=== PATIENT | male | born 1945 | race Caucasian/White ===

== ENCOUNTER 2017-11-05 20:40 | Inpatient (IN) ==
[2017-11-05] MEDS ORDERED: *HR* LORazepam 2 MG/ML VIAL IVP ONE (20:43)
[2017-11-05] MEDS ORDERED: 0.9 % Sodium Chloride 1,000 ML IVC ONE (20:43)
[2017-11-05] MEDS ORDERED: Pantoprazole 80 MG in 0.9 % Sodium Chloride 50 ML IVPB ONE (20:43)
--- NOTE | 2017-11-05 20:59 | Emergency Department Note ---
Disposition Clinical Impression: Colitis, Elevated troponin GI bleed Qualifiers: GI bleed type/associated pathology: unspecified gastrointestinal hemorrhage type Qualified Code(s): K92.2 - Gastrointestinal hemorrhage, unspecified Anemia Qualifiers: Anemia type: unspecified type Qualified Code(s): D64.9 - Anemia, unspecified Disposition: Admitted As Inpatient Condition: Critical Time of Disposition: 23:58 GI Bleed HPI - General Stated complaint: GI Bleed Time Seen by Provider: 11/05/17 20:43 Source: patient Limitations: no limitations Nursing Notes Reviewed: Yes Vital Signs Reviewed: Yes - History of Present Illness HPI Narrative: Patient is a 72-year-old male who presents to [facility] for GI bleed. Patient states he has had black stools for the last 2 months. States he initially has a bowel movement in the morning but is followed by blood and then the rest is dark stools. Denies any nausea, vomiting, fever or chills. No abdominal pain. No problems with urination or bowel movements. Patient states he was at the [place] for alcohol detox for the last 20 days. Denies any chest pain, difficulty breathing or problems with urination. Pt Subjective Complaint: melena, gross hematochezia Onset (ago): month(s) (2) Consistency: intermittent Severity: moderate Improves with: nothing Worsens with: nothing Context: liver disease, alcohol abuse Associated symptoms: Denies: abdominal pain, nausea, vomiting, fever, chills Treatments Prior to Arrival: none - Related Data Home Medications Medication Instructions Recorded Confirmed Allopurinol [Zyloprim 100 MG] 100 mg PO DAILY 11/05/17 11/05/17 Aspirin [Adult Aspirin] 81 mg PO DAILY 11/05/17 11/05/17 Cholecalciferol (Vitamin D3) 1,000 mg PO DAILY 11/05/17 11/05/17 [Vitamin D3] Folic Acid [Folic Acid] 2 mg PO DAILY 11/05/17 11/05/17 Hydrocortisone/Pramoxine 1 appl RC BID PRN 11/05/17 11/05/17 [Proctofoam-Hc 1%-1% Foam] Ibuprofen [Ibu] 600 mg PO QID 11/05/17 11/05/17 Ketotifen Fumarate [Zaditor] 1 drop OP BID 11/05/17 11/05/17 Lactobacillus Acidophilus 1 cap PO DAILY 11/05/17 11/05/17 [Acidophilus Lactobacillus] Lactulose [Lactulose] 30 ml PO TID 11/05/17 11/05/17 Lisinopril-HCTZ 20-12.5 [Prinzide 1 tab PO DAILY 11/05/17 11/05/17 20-12.5] Metformin HCl [Metformin HCl] 1,000 mg PO BID 11/05/17 11/05/17 Methyl Salicylate/Menthol [Muscle 1 appl TP TID 11/05/17 11/05/17 Rub Cream] Nystatin POWDER [Nystop] 1 appl TP BID 11/05/17 11/05/17 Omeprazole [PriLOSEC] 20 mg PO BID 11/05/17 11/05/17 Propylene Glycol/Peg 400/Pf 1 drop OP DAILY 11/05/17 11/05/17 [Systane Ultra 0.4-0.3% Eye Drp] Sertraline [Zoloft] 100 mg PO DAILY 11/05/17 11/05/17 Thiamine HCl [Vitamin B-1] 100 mg PO DAILY 11/05/17 11/05/17 Trazodone HCl 100 mg PO HS 11/05/17 11/05/17 Allergies Allergy/AdvReac Type Severity Reaction Status Date / Time No Known Allergies Allergy Verified 11/05/17 20:52 All systems ED: reviewed and negative except as stated. Past Medical History - Past Medical History Attestation: Yes The following information was validated with the patient. Source: patient Medical history: Reports: diabetes, GERD Psychiatric history: Reports: no psych history - Social History Smoking Status: Never smoker Smokeless Tobacco Status: No Alcohol use: Reports: none Drug use: Reports: none Physical Exam - General Limitations: no limitations General appearance: alert, in no apparent distress - Head Head exam: atraumatic, normocephalic, normal inspection - Eye Eye exam: Present: normal appearance, EOMI - ENT ENT exam: normal exam, normal oropharynx, mucous membranes moist - Neck Neck exam: Present: normal inspection, full ROM, trachea midline - Chest Chest inspection: Present: normal inspection, symmetric chest wall rise - Respiratory Respiratory exam: Present: normal lung sounds bilaterally - Cardiovascular Cardiovascular exam: Present: regular rate, normal rhythm, normal heart sounds - Abdominal Exam Abdominal exam: Present: soft, Non-Tender. Absent: tenderness, distention, guarding, rebound, rigidity - Extremities Exam Extremities exam: Present: normal inspection, full ROM. Absent: tenderness, pedal edema - Neurological Exam Neurological exam: Present: alert, oriented X3 - Psychiatric Psychiatric exam: Present: normal affect, normal mood - Skin Skin exam: Present: warm, dry, intact, normal color Course Course Narrative: Patient seen and examined. GI bleed with patient hypotensive. Labwork reordered as well as CT abdomen and pelvis. We will give a liter of IV fluids. We will type and cross for 2 units of blood. - Reevaluation(s) Reevaluation #1: Labwork shows elevated troponin. Suspect this is likely due to demand ischemia. Patient currently has 3 large-bore IVs. He has received a liter bolus of fluids and is receiving his first unit of blood. His blood pressure has improved to 100/82. CT abdomen and pelvis showed signs of colitis. Suspect this is where the bleeding is coming from. Since he has not had any nausea or vomiting, or epigastric discomfort, I do not currently suspect that this is a variceal bleed. I discussed the GI bleed with the on-call endoscopy surgeon Dr. Beth who will see him in consultation tomorrow. I discussed with the hospitalist Dr. Smith who has accepted patient for admission to the ICU. Time: 00:00 Vital Signs Temperature 96.9 F L 11/05/17 20:45 Pulse Rate 72 11/05/17 20:45 Respiratory Rate 18 11/05/17 20:45 Blood Pressure 98/59 11/05/17 20:45 O2 Sat by Pulse Oximetry 100 11/05/17 20:45 Temperature 97.4 F L 11/06/17 05:00 Pulse Rate 72 11/06/17 05:00 Respiratory Rate 14 11/06/17 05:00 Blood Pressure 97/61 11/06/17 05:00 O2 Sat by Pulse Oximetry 99 11/06/17 05:00 Oxygen Delivery Oxygen Delivery Room Air GI Bleed - Medical Records Medical records reviewed: Yes I reviewed the patient's medical records. - Lab Data Lab results reviewed: Yes I reviewed the patient's lab results. Result diagrams: 11/05/17 20:53 11/05/17 20:53 Lab Results 11/05/17 11/05/17 11/05/17 Range/Units 20:53 20:53 20:53 WBC 7.7 (4.3-11.1) K/mcL RBC 2.13 L (4.19-5.50) M/mcL Hgb 7.8 L (12.9-16.9) g/dL Hct 22.7 L (37.5-50.1) % MCV 106.6 H (83.0-100.0) fL MCH 36.6 H (28.0-33.3) pg MCHC 34.4 (31.6-35.5) g/dL RDW 15.6 H (11.5-14.5) % Plt Count 140 (140-400) K/mcL MPV 11.0 (9.4-12.4) fL Immature Gran % 1.4 (0-4) % Seg Neutrophils % 66.8 % Lymphocytes % 23.4 % Monocytes % 5.5 % Eosinophils % 2.4 % Basophils % 0.5 % Neutrophils # 5.1 (1.6-8.9) K/mcL Lymphocytes # 1.8 (0.6-4.6) K/mcL Monocytes # 0.4 (0.0-1.3) K/mcL Eosinophils # 0.2 (0.0-0.6) K/mcL Basophils # 0.0 (0.0-0.2) K/mcL ESR (0-10) mm/hr PT 13.1 H (9.4-12.1) Seconds INR 1.2 APTT 32.9 (26.0-36.0) Seconds Sodium 135 L (136-145) mEq/L Potassium 4.6 (3.5-5.1) mEq/L Chloride 109 H (98-107) mEq/L Carbon Dioxide 17 L (23-29) mEq/L BUN 47 H (8-23) mg/dL Creatinine 1.23 (0.70-1.30) mg/dL Est GFR ( Amer) > 60 (> 60) Est GFR (Non-Af Amer) 58 L (> 60) BUN/Creatinine Ratio 38 H (6-26) Glucose 84 (70-105) mg/dL Calculated Osmolality 291 (280-300) Lactic Acid (0.5-2.2) mmol/L Calcium 8.9 (8.6-10.3) mg/dL Magnesium 1.8 (1.6-2.6) mg/dL Total Bilirubin 2.1 H (0.3-1.0) mg/dL AST 46 H (13-39) Units/L ALT 17 (7-52) Units/L Alkaline Phosphatase 170 H (34-104) Units/L Troponin I 0.08 H* (< 0.04) ng/mL C-Reactive Protein 27 H (Less than 10) mg/L Serum Total Protein 6.2 L (6.4-8.9) g/dL Albumin 2.9 L (3.5-5.7) g/dL Globulin 3.3 (2.4-3.5) g/dL Albumin/Globulin Ratio 0.9 L (1.1-2.2) Lipase 119 H (11-82) Units/L Blood Type Antibody Screen Crossmatch 11/05/17 11/05/17 11/05/17 Range/Units 20:53 20:53 20:53 WBC (4.3-11.1) K/mcL RBC (4.19-5.50) M/mcL Hgb (12.9-16.9) g/dL Hct (37.5-50.1) % MCV (83.0-100.0) fL MCH (28.0-33.3) pg MCHC (31.6-35.5) g/dL RDW (11.5-14.5) % Plt Count (140-400) K/mcL MPV (9.4-12.4) fL Immature Gran % (0-4) % Seg Neutrophils % % Lymphocytes % % Monocytes % % Eosinophils % % Basophils % % Neutrophils # (1.6-8.9) K/mcL Lymphocytes # (0.6-4.6) K/mcL Monocytes # (0.0-1.3) K/mcL Eosinophils # (0.0-0.6) K/mcL Basophils # (0.0-0.2) K/mcL ESR 35 H (0-10) mm/hr PT (9.4-12.1) Seconds INR APTT (26.0-36.0) Seconds Sodium (136-145) mEq/L Potassium (3.5-5.1) mEq/L Chloride (98-107) mEq/L Carbon Dioxide (23-29) mEq/L BUN (8-23) mg/dL Creatinine (0.70-1.30) mg/dL Est GFR ( Amer) (> 60) Est GFR (Non-Af Amer) (> 60) BUN/Creatinine Ratio (6-26) Glucose (70-105) mg/dL Calculated Osmolality (280-300) Lactic Acid 1.2 (0.5-2.2) mmol/L Calcium (8.6-10.3) mg/dL Magnesium (1.6-2.6) mg/dL Total Bilirubin (0.3-1.0) mg/dL AST (13-39) Units/L ALT (7-52) Units/L Alkaline Phosphatase (34-104) Units/L Troponin I (< 0.04) ng/mL C-Reactive Protein (Less than 10) mg/L Serum Total Protein (6.4-8.9) g/dL Albumin (3.5-5.7) g/dL Globulin (2.4-3.5) g/dL Albumin/Globulin Ratio (1.1-2.2) Lipase (11-82) Units/L Blood Type A POSITIVE Antibody Screen NEGATIVE Crossmatch See Detail - Radiology Data Radiology results reviewed: Yes I reviewed the patient's radiology results. Abdomen/Pelvis CT 11/05/17 22:15 IMPRESSION: Thickened appearance to the cecum and ascending colon which could reflect colitis. Diverticulosis coli without evidence of diverticulitis. [id number] ascites. Slight nodularity to the surface of the liver which could reflect the early changes of hepatic cirrhosis. Cholelithiasis and mild left pleural effusion. 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 D/ / José Miguel Gibbs MD / José Miguel Gibbs MD Interpreting Provider: José Miguel Gibbs MD - EKG Data EKG attestation: Yes I reviewed and interpreted this EKG. EKG results narrative: EKG done at 2058 shows normal sinus rhythm with a rate of [address] elevation or depression. Normal axis. Right bundle branch block noted. Low voltage throughout. Attestation Statement - Attestation Attestation: I examined this patient and my medical decision-making was reviewed with the Resident Physician. I agree with the documented findings, disposition and treatment plan as described except to the extent set forth below. Patient hypotensive a GI hemorrhage. Suspect lower GI bleed with associated colitis found on CAT scan. Cipro and Flagyl initiated. General surgery was consult at. Patient received 2 units of packed red blood cells. There was resolution of abnormal vital signs with volume resuscitation. Patient is now hemodynamically stable. The patient be transferred to the intensive care unit for further management. I spent greater than 35 minutes of critical care time resuscitating this acutely ill patient suffering from GI hemorrhage. This was excluding billable procedures.
[2017-11-05 21:12] LABS: Basophils % 0.5 %; Eosinophils # 0.2 K/mcL (0.0-0.6); Eosinophils % 2.4 %; Hematocrit 22.7 % (37.5-50.1); Hemoglobin 7.8 g/dL (12.9-16.9); Immature Granulocytes % 1.4 % (0-4); Lymphocytes # 1.8 K/mcL (0.6-4.6); Lymphocytes % 23.4 %; Mean Corpuscular HGB Conc 34.4 g/dL (31.6-35.5); Mean Corpuscular Hemoglobin 36.6 pg (28.0-33.3); Mean Corpuscular Volume 106.6 fL (83.0-100.0); Monocytes # 0.4 K/mcL (0.0-1.3); Monocytes % 5.5 %; Neutrophils # 5.1 K/mcL (1.6-8.9); Platelet Count 140 K/mcL (140-400); Red Blood Count 2.13 M/mcL (4.19-5.50); Red Cell Distribution Width 15.6 % (11.5-14.5); Segmented Neutrophils % 66.8 %
[2017-11-05] MEDS ORDERED: Octreotide 50 MCG/ML SYRINGE IVP ONE (21:13)
[2017-11-05] MEDS ORDERED: cefTRIAXone 2,000 MG in 0.9 % Sodium Chloride Mini Bag 100 ML IVPB ONE (21:14)
--- NOTE | 2017-11-05 21:22 | Emergency Department Note ---
Disposition Pediatric GI HPI - General Chief Complaint: ED GI Bleed Stated Complaint: GI Bleed Time Seen by Provider: 11/05/17 20:43 Source: patient Limitations: no limitations Nursing Notes Reviewed: Yes Vital Signs Reviewed: Yes - Related Data Home Medications Medication Instructions Recorded Confirmed Allopurinol [Zyloprim 100 MG] 100 mg PO DAILY 11/05/17 11/05/17 Aspirin [Adult Aspirin] 81 mg PO DAILY 11/05/17 11/05/17 Folic Acid [Folic Acid] 1 mg PO BID 11/05/17 11/05/17 Hydrocortisone/Pramoxine 1 appl RC BID 11/05/17 11/05/17 [Proctofoam-Hc 1%-1% Foam] Ibuprofen [Ibu] 600 mg PO QID 11/05/17 11/05/17 Ketotifen Fumarate [Zaditor] 1 drop OP DAILY 11/05/17 11/05/17 Lactulose [Lactulose] 11/05/17 Lisinopril-HCTZ 20-12.5 [Prinzide 1 tab PO DAILY 11/05/17 11/05/17 20-12.5] Metformin HCl [Metformin HCl] 1,000 mg PO BID 11/05/17 11/05/17 Methyl Salicylate/Menthol [Muscle 1 appl TP TID 11/05/17 11/05/17 Rub Cream] Nystatin POWDER [Nystop] 1 appl TP DAILY 11/05/17 11/05/17 Omeprazole [PriLOSEC] 20 mg PO BID 11/05/17 11/05/17 Propylene Glycol/Peg 400/Pf 1 drop OP DAILY 11/05/17 11/05/17 [Systane Ultra 0.4-0.3% Eye Drp] Sertraline [Zoloft] 100 mg PO DAILY 11/05/17 11/05/17 Thiamine HCl [Vitamin B-1] 100 mg PO DAILY 11/05/17 11/05/17 Trazodone HCl 100 mg PO HS 11/05/17 11/05/17 Allergies Allergy/AdvReac Type Severity Reaction Status Date / Time No Known Allergies Allergy Verified 11/05/17 20:52 Pediatric Exam - General Limitations: no limitations Course Vital Signs Temperature 96.9 F L 11/05/17 20:45 Pulse Rate 72 11/05/17 20:45 Respiratory Rate 18 11/05/17 20:45 Blood Pressure 98/59 11/05/17 20:45 O2 Sat by Pulse Oximetry 100 11/05/17 20:45 Temperature 96.9 F L 11/05/17 20:45 Pulse Rate 72 11/05/17 20:45 Respiratory Rate 18 11/05/17 20:45 Blood Pressure 98/59 11/05/17 20:45 O2 Sat by Pulse Oximetry 100 11/05/17 20:45 Oxygen Delivery Oxygen Delivery Room Air Medical Decision Making - Lab Data Result diagrams: 11/05/17 20:53 Lab Results 11/05/17 11/05/17 Range/Units 20:53 20:53 WBC 7.7 (4.3-11.1) K/mcL RBC 2.13 L (4.19-5.50) M/mcL Hgb 7.8 L (12.9-16.9) g/dL Hct 22.7 L (37.5-50.1) % MCV 106.6 H (83.0-100.0) fL MCH 36.6 H (28.0-33.3) pg MCHC 34.4 (31.6-35.5) g/dL RDW 15.6 H (11.5-14.5) % Plt Count 140 (140-400) K/mcL MPV 11.0 (9.4-12.4) fL Immature Gran % 1.4 (0-4) % Seg Neutrophils % 66.8 % Lymphocytes % 23.4 % Monocytes % 5.5 % Eosinophils % 2.4 % Basophils % 0.5 % Neutrophils # 5.1 (1.6-8.9) K/mcL Lymphocytes # 1.8 (0.6-4.6) K/mcL Monocytes # 0.4 (0.0-1.3) K/mcL Eosinophils # 0.2 (0.0-0.6) K/mcL Basophils # 0.0 (0.0-0.2) K/mcL Lactic Acid 1.2 (0.5-2.2) mmol/L
[2017-11-05 21:23] LABS: INR 1.2; Prothrombin Time 13.1 Seconds (9.4-12.1)
[2017-11-05 21:25] LABS: Activated Partial Thrombo Time 32.9 Seconds (26.0-36.0)
[2017-11-05 21:33] LABS: Alanine Aminotransferase 17 Units/L (7-52); Albumin 2.9 g/dL (3.5-5.7); Albumin/Globulin Ratio 0.9 (1.1-2.2); Alkaline Phosphatase 170 Units/L (34-104); Aspartate Amino Transferase 46 Units/L (13-39); BUN/Creatinine Ratio 38 (6-26); Bilirubin,Total 2.1 mg/dL (0.3-1.0); Blood Urea Nitrogen 47 mg/dL (8-23); Calcium 8.9 mg/dL (8.6-10.3); Carbon Dioxide 17 mEq/L (23-29); Chloride 109 mEq/L (98-107); Globulin 3.3 g/dL (2.4-3.5); Glucose 84 mg/dL (70-105); Lipase 119 Units/L (11-82); Magnesium 1.8 mg/dL (1.6-2.6); Osmolality,Calculated 291 (280-300); Potassium 4.6 mEq/L (3.5-5.1); Sodium 135 mEq/L (136-145); Total Protein 6.2 g/dL (6.4-8.9); eGFR For African Americans > 60 (> 60); eGFR For Non-African Americans 58 (> 60)
[2017-11-05 21:35] LABS: Troponin I 0.08 ng/mL (< 0.04)
[2017-11-05] MEDS: Octreotide 400 MCG in 0.9 % Sodium Chloride 100 ML IVC SCH (21:57)
[2017-11-05] MEDS: Pantoprazole 40 MG in 0.9 % Sodium Chloride Mini Bag 100 ML IVC SCH (21:58)
[2017-11-05] MEDS ORDERED: 0.9 % Sodium Chloride 250 ML ONE (22:53)
[2017-11-05] MEDS ORDERED: MetroNIDAZOLE 500 MG/100 ML 500 MG/100 ML BAG IVPB ONE (23:02)
[2017-11-05] MEDS ORDERED: Naloxone 0.4 MG/ML INJ IVP PRN (23:44)
[2017-11-05] MEDS ORDERED: Acetaminophen 325 MG TABLET PO PRN (23:44)
[2017-11-05] MEDS ORDERED: Potassium Chloride 40 MEQ/200 ML BAG IVPB PRN (23:45)
[2017-11-05] MEDS ORDERED: Potassium Phosphate 44 MEQ in 0.9 % Sodium Chloride 250 ML IVPB PRN (23:45)
[2017-11-06] MEDS ORDERED: *HR* Dextrose 50 % in Water (Syg) 50 ML SYRINGE IVP PRN (00:30)
[2017-11-06] MEDS ORDERED: D5% in Water 1,000 ML IVC PRN (00:30)
[2017-11-06] MEDS ORDERED: Dextrose Gel 15 GM/37.5 ML TUBE PO PRN ×2 (00:30)
--- NOTE | 2017-11-06 00:33 | Internal Med History&Physical ---
Date of Encounter: 11/06/17 Time of Encounter: 00:31 Internal Medicine - H&P: HPI Chief complaint: Low hemoglobin Admitted From: Emergency Dept Plans for Post Hospital Care: Home History of present illness: Mr. Maldonado is a 72 year old male with history of alcoholic liver cirrhosis, cognitive dysfunction, diabetes mellitus, reported history of CHF, alcohol dependence who is in detox currently, hypertension, ROBER, peripheral neuropathy, who was sent from the [place] where he had laboratory workup that showed a hemoglobin of 7.9 with reported bloody stools. The patient has no previous labs in our system but the patient had labs sent with him from earlier this year with his hemoglobin being 12.3 back in September and has progressively been declining ever since. Please note that the patient was heavily sedated after 2 mg of Ativan when I went and evaluated him. Most of the history was obtained through the ED staff and the charting. The patient reportedly has been having black stools for the last 2 months. It initially started as bright red blood and turned into dark stools. No nausea, vomiting, or abdominal pain, although the patient was tender to palpation in the lower abdomen when I evaluated him. The patient has been a resident of the [place] for alcohol detox for the last 3 weeks or so. Upon presentation to us he was hypotensive. He received IV fluids and laboratory workup showed hemoglobin of 7.8. Rest of labs showed a troponins of 0.08. Lipase 119. AST of 46,ALT of 17, total bilirubin of 2.1. CT abdomen and pelvis that contrast showed evidence of thickened appearance of the cecum and ascending colon reflecting possible colitis. There was mild to moderate ascites. Slightly nodular appearance of the liver. The patient also received Floxin and Flagyl. Was started on octreotide and Protonix drip. Dr. Beth from surgery was consulted from the ED and will be seeing the patient in the morning. Past Med Surg Social Fam HX - Past Medical History Medical history: diabetes, GERD Additional medical history: ETOH detox Psychiatric history: no psych history - Social History Smoking Status: Never smoker Smokeless Tobacco Status: No Alcohol use: none Drug use: none Internal Medicine - H&P: Meds Allopurinol [Zyloprim 100 MG] 100 mg PO DAILY 11/05/17 [History] Aspirin [Adult Aspirin] 81 mg PO DAILY 11/05/17 [History] Cholecalciferol (Vitamin D3) [Vitamin D3] 1,000 mg PO DAILY 11/05/17 [History] Folic Acid [Folic Acid] 2 mg PO DAILY 11/05/17 [History] Hydrocortisone/Pramoxine [Proctofoam-Hc 1%-1% Foam] 1 appl RC BID PRN 11/05/17 [ History] Ibuprofen [Ibu] 600 mg PO QID 11/05/17 [History] Ketotifen Fumarate [Zaditor] 1 drop OP BID 11/05/17 [History] Lactobacillus Acidophilus [Acidophilus Lactobacillus] 1 cap PO DAILY 11/05/17 [ History] Lactulose [Lactulose] 30 ml PO TID 11/05/17 [History] Lisinopril-HCTZ 20-12.5 [Prinzide 20-12.5] 1 tab PO DAILY 11/05/17 [History] Metformin HCl [Metformin HCl] 1,000 mg PO BID 11/05/17 [History] Methyl Salicylate/Menthol [Muscle Rub Cream] 1 appl TP TID 11/05/17 [History] Nystatin POWDER [Nystop] 1 appl TP BID 11/05/17 [History] Omeprazole [PriLOSEC] 20 mg PO BID 11/05/17 [History] Propylene Glycol/Peg 400/Pf [Systane Ultra 0.4-0.3% Eye Drp] 1 drop OP DAILY 09/19 [History] Sertraline [Zoloft] 100 mg PO DAILY 11/05/17 [History] Thiamine HCl [Vitamin B-1] 100 mg PO DAILY 11/05/17 [History] Trazodone HCl 100 mg PO HS 11/05/17 [History] 3 Allergy/AdvReac Type Severity Reaction Status Date / Time No Known Allergies Allergy Verified 11/05/17 20:52 ROS unobtainable: due to mental status - Constitutional Vitals: Temp Pulse Resp BP Pulse Ox 98.0 F 83 20 88/56 97 11/06/17 00:13 11/06/17 00:13 11/06/17 00:13 11/06/17 00:13 11/06/17 00:13 Exam: GEN: NAD, patient is sedated HEENT: AT, NC, No cyanosis, oral mucosa is moist, No JVD Lymphatics: No lymphadenoapthy Eyes: Extrocular muscles intact, anicteric CVS:RRR. S1, S2, No m/r/g RESP: CTAB ABD: Distended abdomen, NT, ND, +BS EXT: No edema, No rashes, 2+ DP NEURO: Moves extremities spontaneously although the patient is not following commands pupils are dilated and reactive bilaterally. Psych: Cooperative, Not anxious or depressed Internal Med - H&P Results - Labs CBC & Chem 7: 11/05/17 20:53 11/05/17 20:53 Labs: Short CBC 11/05/17 Range/Units 20:53 WBC 7.7 (4.3-11.1) K/mcL Hgb 7.8 L (12.9-16.9) g/dL Hct 22.7 L (37.5-50.1) % Plt Count 140 (140-400) K/mcL Neutrophils # 5.1 (1.6-8.9) K/mcL BMP 11/05/17 20:53 Sodium 135 L Potassium 4.6 Chloride 109 H Carbon Dioxide 17 L BUN 47 H Creatinine 1.23 Glucose 84 Calcium 8.9 Cardiac Enzymes 11/05/17 Range/Units 20:53 Troponin I 0.08 H* (< 0.04) ng/mL Liver Function 11/05/17 Range/Units 20:53 Total Bilirubin 2.1 H (0.3-1.0) mg/dL AST 46 H (13-39) Units/L ALT 17 (7-52) Units/L Alkaline Phosphatase 170 H (34-104) Units/L Albumin 2.9 L (3.5-5.7) g/dL - Impressions ITS Impressions Abdomen/Pelvis CT 11/05/17 22:15 IMPRESSION: Thickened appearance to the cecum and ascending colon which could reflect colitis. Diverticulosis coli without evidence of diverticulitis. Fzgs-[id number]-impmvehe ascites. Slight nodularity to the surface of the liver which could reflect the early changes of hepatic cirrhosis. Cholelithiasis and mild left pleural effusion. 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 D/ / José Miguel Gibbs MD / José Miguel Gibbs MD Interpreting Provider: José Miguel Gibbs MD - Assessment and plan (1) GI bleed Current Visit: Yes Status: Acute Assessment and plan: Given history of alcohol abuse patient has been placed on octreotide drip. No evidence of hematemesis. An attempt at an NG tube was done in the ED but failed. We will continue with the Protonix drip started in the ED. Dr. Beth has been consulted. H&H every 6 hours. Stop aspirin. Nothing by mouth Qualifiers: GI bleed type/associated pathology: unspecified gastrointestinal hemorrhage type Qualified Code(s): K92.2 - Gastrointestinal hemorrhage, unspecified (2) Acute blood loss anemia Current Visit: Yes Status: Acute Assessment and plan: Patient has been ordered 2 units of PRBCs in the ED. We will trend H&H every 6 hours. Admitted to the ICU. Has 2 large bore IVs. (3) Colitis Current Visit: Yes Status: Acute Assessment and plan: Placed patient on IV Cipro and Flagyl. Gentle hydration. Check ESR and CRP and GI panel. (4) Elevated troponin Current Visit: Yes Status: Acute Assessment and plan: Likely demand ischemia. Trend cardiac enzymes. Check an echocardiogram. EKG with no ST or T-wave changes. (5) Diabetes mellitus Current Visit: Yes Status: Acute Assessment and plan: We will place the patient insulin sliding scale. Accu-Cheks. Qualifiers: Diabetes mellitus type: type 2 Diabetes mellitus nursing home insulin use: without long term acute care registered nurse use Diabetes mellitus complication status: with neurologic complications Diabetes mellitus complication detail: with unspecified neuropathy Qualified Code(s): E11.40 - Type 2 diabetes mellitus with diabetic neuropathy, unspecified (6) Alcohol dependence Current Visit: Yes Status: Acute Assessment and plan: Patient has been going through detox for the last 3 weeks or so. We will continue thiamine, folic acid, and multivitamins. Likely to go through withdrawals. We will monitor. Qualifiers: Substance use status: in remission Qualified Code(s): F10.21 - Alcohol dependence, in remission (7) Depression Current Visit: Yes Status: Acute Assessment and plan: Continue home medications. Qualifiers: Depression Type: unspecified Qualified Code(s): F32.9 - Major depressive disorder, single episode, unspecified (8) CHF (congestive heart failure) Current Visit: Yes Status: Acute Assessment and plan: History of it reportedly. Unsure exactly what is cardiac function is. Given elevated troponins, We will check an echo. Patient is euvolemic. Not hypoxic. Resume cardiac meds. Qualifiers: Heart failure type: unspecified Heart failure chronicity: unspecified Qualified Code(s): I50.9 - Heart failure, unspecified (9) Hypertension Current Visit: Yes Status: Acute Assessment and plan: Hold antihypertensives. Patient is hypotensive Qualifiers: Hypertension type: essential hypertension Qualified Code(s): I10 - Essential (primary) hypertension (10) DVT prophylaxis Current Visit: Yes Status: Acute Assessment and plan: SCDs - Time Spent With Patient Total time spent is greater than 50% in coordination of care (as documented) at patient's floor/unit and/or counseling patient:
[2017-11-06 00:40] LABS: C-Reactive Protein 27 mg/L (Less than 10)
[2017-11-06] MEDS ORDERED: Pramoxine 15 GM FOAM Package RC PRN (00:50)
[2017-11-06] MEDS ORDERED: 0.9 % Sodium Chloride 250 ML ONE (02:20)
[2017-11-06] MEDS: Pantoprazole 40 MG in 0.9 % Sodium Chloride Mini Bag 100 ML IVC SCH ×4 (03:28→20:42)
[2017-11-06] MEDS: Octreotide 400 MCG in 0.9 % Sodium Chloride 100 ML IVC SCH ×3 (05:57→23:56)
[2017-11-06 06:00] LABS: Basophils % 0.3 %; Eosinophils # 0.2 K/mcL (0.0-0.6); Eosinophils % 2.4 %; Hematocrit 28.4 % (37.5-50.1); Hemoglobin 9.9 g/dL (12.9-16.9); Immature Granulocytes % 1.4 % (0-4); Lymphocytes # 1.5 K/mcL (0.6-4.6); Lymphocytes % 22.1 %; Mean Corpuscular HGB Conc 34.9 g/dL (31.6-35.5); Mean Corpuscular Hemoglobin 34.7 pg (28.0-33.3); Mean Corpuscular Volume 99.6 fL (83.0-100.0); Mean Platelet Volume 10.9 fL (9.4-12.4); Monocytes # 0.5 K/mcL (0.0-1.3); Monocytes % 6.6 %; Neutrophils # 4.7 K/mcL (1.6-8.9); Nucleated Red Blood Cells 0.3 /100 WBC (0); Platelet Count 111 K/mcL (140-400); Red Blood Count 2.85 M/mcL (4.19-5.50); Red Cell Distribution Width 18.2 % (11.5-14.5); Segmented Neutrophils % 67.2 %
[2017-11-06 06:22] LABS: Alanine Aminotransferase 15 Units/L (7-52); Albumin 2.4 g/dL (3.5-5.7); Albumin/Globulin Ratio 0.8 (1.1-2.2); Alkaline Phosphatase 150 Units/L (34-104); Aspartate Amino Transferase 44 Units/L (13-39); BUN/Creatinine Ratio 37 (6-26); Bilirubin,Total 2.6 mg/dL (0.3-1.0); Blood Urea Nitrogen 45 mg/dL (8-23); Calcium 7.9 mg/dL (8.6-10.3); Carbon Dioxide 17 mEq/L (23-29); Chloride 109 mEq/L (98-107); Globulin 2.9 g/dL (2.4-3.5); Glucose 88 mg/dL (70-105); Magnesium 1.7 mg/dL (1.6-2.6); Osmolality,Calculated 289 (280-300); Potassium 4.5 mEq/L (3.5-5.1); Sodium 134 mEq/L (136-145); Total Protein 5.3 g/dL (6.4-8.9); eGFR For African Americans > 60 (> 60); eGFR For Non-African Americans 58 (> 60)
[2017-11-06] MEDS: Insulin LISPRO 300 UNITS/3 ML VIAL SQ SCH ×3 (06:25→18:24)
--- NOTE | 2017-11-06 07:56 | General Surgery Consult Note ---
<Nasreen Wilson Larissa - Last Filed: 11/06/17 09:12> Date of Encounter: 11/06/17 Time of Encounter: 07:54 Assessment and Plan (1) Colitis Current Visit: Yes Status: Acute Ct with evidence of colitis (thickened cecum and ascending colon). Pt with history of and noted diverticulitis on CT without evidence of diverticulitis. Currently on cipro flagyl. Plan: continue cipro flagyl Continue NPO except carafate slurrry when he is alert enough; pending further recommendations Serial abdominal exams [facility] along with you Final recommendations per attending attestation (2) Esophageal varices Current Visit: Yes Status: Acute Possible esophageal varices per CT (nominated study given no contrast) this would certainly be consistent with his alcohol history and the 's report of black tarry stool. She denied hematemesis. Noted patient is on octreotide at this time. Would recommend consult to G.I. if there is a desire/need for EGD given the varices. Qualifiers: Esophageal varices type: unspecified type Esophageal varices bleeding: with bleeding Qualified Code(s): I85.01 - Esophageal varices with bleeding (3) Anemia Current Visit: Yes Status: Acute Likely acute on chronic Baseline [facility]. His hemoglobin is 9.9 at this time s/p 3 u PRBC transfusion. Will continue to monitor; transfusions per primary team. Qualifiers: Anemia type: unspecified type Qualified Code(s): D64.9 - Anemia, unspecified (4) Portal hypertension Current Visit: Yes Status: Acute Management per primary team (5) Ascites Current Visit: Yes Status: Acute Management per primary team Qualifiers: Ascites type: due to alcoholic cirrhosis Qualified Code(s): K70.31 - Alcoholic cirrhosis of liver with ascites (6) CHF (congestive heart failure) Current Visit: Yes Status: Acute Management per primary team; unknown etiology Qualifiers: Heart failure type: unspecified Heart failure chronicity: unspecified Qualified Code(s): I50.9 - Heart failure, unspecified History of Present Illness Consult date: 11/05/17 (Dr. 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 His PMH and subjective information are obtained via chart review and interview with , Hiwot Maldonado, at bedside. She is somewhat of a poor historian as she is initially reluctant to give his medical history including the amount of alcohol that he drank for fear that we were asking and judgment. I did reassure her that we needed to establish the amount of alcohol use in order to determine the risk of bleeding and she then proceeded to say that he had been drinking approximately 1.5 pints of Marcos Yang daily for at least the last year. She reports he would get up in the middle of the night to take shots. Per review of his [place] records, he has a baseline hemoglobin of 10.5 since September 2017. Hiwot further reports the patient spent 9 weeks at the [place] detox for alcohol and was just released approximately 2 weeks ago. She reports he'd been having some bloody bowel movements they are which were related to his hemorrhoids (bright red blood on the toilet paper and in the toilet), however the last 2 days she had noticed bright red blood in the toilet, dark tarry stool on the toilet paper, and his stool then progressed to dark and tarry. She states his last colonoscopy was 2015 at the [facility], but she is unsure about his last EGD. She reports a history of congestive heart failure, but denies any history of ASHD. Past Med Surg Social Fam HX - Past Medical History Medical history: diabetes, GERD Additional medical history: ETOH detox Psychiatric history: no psych history - Past Surgical History Surgical History: no surgical history - Social History Smoking Status: Never smoker Smokeless Tobacco Status: No Alcohol use: none Drug use: none Medications and Allergies Allopurinol [Zyloprim 100 MG] 100 mg PO DAILY 11/05/17 [History] Aspirin [Adult Aspirin] 81 mg PO DAILY 11/05/17 [History] Cholecalciferol (Vitamin D3) [Vitamin D3] 1,000 mg PO DAILY 11/05/17 [History] Folic Acid [Folic Acid] 2 mg PO DAILY 11/05/17 [History] Hydrocortisone/Pramoxine [Proctofoam-Hc 1%-1% Foam] 1 appl RC BID PRN 11/05/17 [ History] Ibuprofen [Ibu] 600 mg PO QID 11/05/17 [History] Ketotifen Fumarate [Zaditor] 1 drop OP BID 11/05/17 [History] Lactobacillus Acidophilus [Acidophilus Lactobacillus] 1 cap PO DAILY 11/05/17 [ History] Lactulose [Lactulose] 30 ml PO TID 11/05/17 [History] Lisinopril-HCTZ 20-12.5 [Prinzide 20-12.5] 1 tab PO DAILY 11/05/17 [History] Metformin HCl [Metformin HCl] 1,000 mg PO BID 11/05/17 [History] Methyl Salicylate/Menthol [Muscle Rub Cream] 1 appl TP TID 11/05/17 [History] Nystatin POWDER [Nystop] 1 appl TP BID 11/05/17 [History] Omeprazole [PriLOSEC] 20 mg PO BID 11/05/17 [History] Propylene Glycol/Peg 400/Pf [Systane Ultra 0.4-0.3% Eye Drp] 1 drop OP DAILY 09/19 [History] Sertraline [Zoloft] 100 mg PO DAILY 11/05/17 [History] Thiamine HCl [Vitamin B-1] 100 mg PO DAILY 11/05/17 [History] Trazodone HCl 100 mg PO HS 11/05/17 [History] 3 Allergy/AdvReac Type Severity Reaction Status Date / Time No Known Allergies Allergy Verified 11/05/17 20:52 Review of Systems All systems PM: reviewed and no additional remarkable complaints except as stated All systems PM: The remainder of the systems were reviewed and are negative General Surgery Exam Initial Vital Signs Temp Pulse Resp BP Pulse Ox 96.9 F L 72 18 98/59 100 11/05/17 20:45 11/05/17 20:45 11/05/17 20:45 11/05/17 20:45 11/05/17 20:45 VITAL SIGNS: Reviewed. See [facility] GENERAL: In no apparent distress. He appears sedated and does not answer questions. Of note he was given lorazepam in the emergency department. HEENT: [Normocephalic, atraumatic, oropharynx is pink and moist, there is no neck adenopathy or JVD noted.] CHEST/RESPIRATORY: The thorax is free from signs of trauma. Lung sounds: [ decreased respiratory effort, decreased breath sounds] CARDIAC: [Regular rate and rhythm. Normal S1 and S2, without murmurs, gallops, or rubs.] VASCULAR: [No Edema. 2+ peripheral pulses.] ABDOMEN: [distended, normal bowel sounds, nontender ] MUSCULOSKELETAL: [unable to assess.] NEUROLOGIC EXAM: [drowsy and disoriented] PSYCHIATRIC: [drowsy and disoriented] SKIN: [No rash or lesions.] Exam Initial Vital Signs Temp Pulse Resp BP Pulse Ox 96.9 F L 72 18 98/59 100 11/05/17 20:45 11/05/17 20:45 11/05/17 20:45 11/05/17 20:45 11/05/17 20:45 Results - Labs 11/06/17 05:26 11/06/17 05:26 Abnormal lab results RBC 2.85 M/mcL (4.19-5.50) L 11/06/17 05:26 Hgb 9.9 g/dL (12.9-16.9) L D 11/06/17 05:26 Hct 28.4 % (37.5-50.1) L 11/06/17 05:26 MCH 34.7 pg (28.0-33.3) H 11/06/17 05:26 RDW 18.2 % (11.5-14.5) H 11/06/17 05:26 Plt Count 111 K/mcL (140-400) L 11/06/17 05:26 Nucleated RBCs/100 WBC 0.3 /100 WBC (0) H 11/06/17 05:26 ESR 35 mm/hr (0-10) H 11/05/17 20:53 PT 13.1 Seconds (9.4-12.1) H 11/05/17 20:53 Sodium 134 mEq/L (136-145) L 11/06/17 05:26 Chloride 109 mEq/L (98-107) H 11/06/17 05:26 Carbon Dioxide 17 mEq/L (23-29) L 11/06/17 05:26 BUN 45 mg/dL (8-23) H 11/06/17 05:26 Est GFR (Non-Af Amer) 58 (> 60) L 11/06/17 05:26 BUN/Creatinine Ratio 37 (6-26) H 11/06/17 05:26 Calcium 7.9 mg/dL (8.6-10.3) L 11/06/17 05:26 Total Bilirubin 2.6 mg/dL (0.3-1.0) H 11/06/17 05:26 AST 44 Units/L (13-39) H 11/06/17 05:26 Alkaline Phosphatase 150 Units/L (34-104) H 11/06/17 05:26 C-Reactive Protein 27 mg/L (Less than 10) H 11/05/17 20:53 Serum Total Protein 5.3 g/dL (6.4-8.9) L 11/06/17 05:26 Albumin 2.4 g/dL (3.5-5.7) L 11/06/17 05:26 Albumin/Globulin Ratio 0.8 (1.1-2.2) L 11/06/17 05:26 Lipase 119 Units/L (11-82) H 11/05/17 20:53 Diabetes panel 11/06/17 Range/Units 05:26 Sodium 134 L (136-145) mEq/L Potassium 4.5 (3.5-5.1) mEq/L Chloride 109 H (98-107) mEq/L Carbon Dioxide 17 L (23-29) mEq/L BUN 45 H (8-23) mg/dL Creatinine 1.23 (0.70-1.30) mg/dL Glucose 88 (70-105) mg/dL Calcium 7.9 L (8.6-10.3) mg/dL AST 44 H (13-39) Units/L ALT 15 (7-52) Units/L Alkaline Phosphatase 150 H (34-104) Units/L Albumin 2.4 L (3.5-5.7) g/dL Calcium panel 11/06/17 Range/Units 05:26 Calcium 7.9 L (8.6-10.3) mg/dL Albumin 2.4 L (3.5-5.7) g/dL Pituitary panel 11/06/17 Range/Units 05:26 Sodium 134 L (136-145) mEq/L Potassium 4.5 (3.5-5.1) mEq/L Chloride 109 H (98-107) mEq/L Carbon Dioxide 17 L (23-29) mEq/L BUN 45 H (8-23) mg/dL Creatinine 1.23 (0.70-1.30) mg/dL Glucose 88 (70-105) mg/dL Calcium 7.9 L (8.6-10.3) mg/dL Adrenal panel 11/06/17 Range/Units 05:26 Sodium 134 L (136-145) mEq/L Potassium 4.5 (3.5-5.1) mEq/L Chloride 109 H (98-107) mEq/L Carbon Dioxide 17 L (23-29) mEq/L BUN 45 H (8-23) mg/dL Creatinine 1.23 (0.70-1.30) mg/dL Glucose 88 (70-105) mg/dL Calcium 7.9 L (8.6-10.3) mg/dL Total Bilirubin 2.6 H (0.3-1.0) mg/dL AST 44 H (13-39) Units/L ALT 15 (7-52) Units/L Alkaline Phosphatase 150 H (34-104) Units/L Albumin 2.4 L (3.5-5.7) g/dL All other labs normal. - Imaging CT scan - abdomen: report reviewed CT scan - chest: report reviewed CT scan - pelvis: report reviewed Consult Discharge Plan - Plan [facility] Care Provider[facility] - Elizabeth Hopkins [Family Provider] - <Azalia Beth - Last Filed: 11/08/17 16:39> Date of Encounter: 11/06/17 Assessment and Plan (1) Colon wall thickening Current Visit: Yes Status: Acute CT scan personally reviewed by myself, cecum and ascending colon wall thickened. patient with recent diarrhea, concern for c diff colitis even though patient has no reported or subjective abdominal pain, gi panel pending (2) GI bleed Current Visit: Yes Status: Acute discussed with primary team given his history of alcohol abuse and varices seen on CT recommend GI perform scopes for if he has varceal bleeding they are the only providers that treat varcies. Qualifiers: GI bleed type/associated pathology: unspecified gastrointestinal hemorrhage type Qualified Code(s): K92.2 - Gastrointestinal hemorrhage, unspecified (3) Esophageal varices Current Visit: Yes Status: Chronic Qualifiers: Esophageal varices type: unspecified type Esophageal varices bleeding: with bleeding Qualified Code(s): I85.01 - Esophageal varices with bleeding Past Med Surg Social Fam HX - Past Medical History Source: patient, old records reviewed Medical history: other (gout, alcohol abuse) Review of Systems All systems PM: reviewed and no additional remarkable complaints except as stated All systems PM: The remainder of the systems were reviewed and are negative General Surgery Exam Initial Vital Signs Temp Pulse Resp BP Pulse Ox 96.9 F L 72 18 98/59 100 11/05/17 20:45 11/05/17 20:45 11/05/17 20:45 11/05/17 20:45 11/05/17 20:45 - General physical appearance well developed, well nourished, no distress - Eyes PERRL, normal ocular movement - ENT normal mucosa, normocephalic - Neck trachea midline - Respiratory normal expansion, clear to auscultation - Abdomen Abdomen general surgery: Present: soft, non tender, distended. Absent: guarding , rebound - Integumentary Integumentary general surgery: Present: warm and dry, no abnormal pigmentation - Neurologic Present: CN 2-12 grossly intact - Musculoskeletal Present: normal posture - Psychiatric Psychiatric general surgery: Present: oriented to person, other (confused at times) Exam Initial Vital Signs Temp Pulse Resp BP Pulse Ox 96.9 F L 72 18 98/59 100 11/05/17 20:45 11/05/17 20:45 11/05/17 20:45 11/05/17 20:45 11/05/17 20:45 Results - Labs 11/08/17 04:16 11/08/17 04:16 Abnormal lab results RBC 3.17 M/mcL (4.19-5.50) L 11/08/17 04:16 Hgb 10.6 g/dL (12.9-16.9) L 11/08/17 04:16 Hct 31.1 % (37.5-50.1) L 11/08/17 04:16 MCH 33.4 pg (28.0-33.3) H 11/08/17 04:16 RDW 18.3 % (11.5-14.5) H 11/08/17 04:16 Plt Count 118 K/mcL (140-400) L 11/08/17 04:16 Nucleated RBCs/100 WBC 0.3 /100 WBC (0) H 11/06/17 05:26 ESR 35 mm/hr (0-10) H 11/05/17 20:53 PT 13.1 Seconds (9.4-12.1) H 11/05/17 20:53 Chloride 112 mEq/L (98-107) H 11/08/17 04:16 Carbon Dioxide 17 mEq/L (23-29) L 11/08/17 04:16 BUN 31 mg/dL (8-23) H 11/08/17 04:16 BUN/Creatinine Ratio 28 (6-26) H 11/08/17 04:16 Glucose 106 mg/dL (70-105) H 11/08/17 04:16 Calcium 8.3 mg/dL (8.6-10.3) L 11/08/17 04:16 Total Bilirubin 2.6 mg/dL (0.3-1.0) H 11/06/17 05:26 AST 44 Units/L (13-39) H 11/06/17 05:26 Alkaline Phosphatase 150 Units/L (34-104) H 11/06/17 05:26 C-Reactive Protein 27 mg/L (Less than 10) H 11/05/17 20:53 Serum Total Protein 5.3 g/dL (6.4-8.9) L 11/06/17 05:26 Albumin 2.4 g/dL (3.5-5.7) L 11/06/17 05:26 Albumin/Globulin Ratio 0.8 (1.1-2.2) L 11/06/17 05:26 Lipase 119 Units/L (11-82) H 11/05/17 20:53 Stl C. diff Tox A/B PCR See reflex test (Not detect) A 11/06/17 15:51 Diabetes panel 11/08/17 Range/Units 04:16 Sodium 138 (136-145) mEq/L Potassium 4.1 (3.5-5.1) mEq/L Chloride 112 H (98-107) mEq/L Carbon Dioxide 17 L (23-29) mEq/L BUN 31 H (8-23) mg/dL Creatinine 1.12 (0.70-1.30) mg/dL Glucose 106 H (70-105) mg/dL Calcium 8.3 L (8.6-10.3) mg/dL Calcium panel 11/08/17 Range/Units 04:16 Calcium 8.3 L (8.6-10.3) mg/dL Pituitary panel 11/08/17 Range/Units 04:16 Sodium 138 (136-145) mEq/L Potassium 4.1 (3.5-5.1) mEq/L Chloride 112 H (98-107) mEq/L Carbon Dioxide 17 L (23-29) mEq/L BUN 31 H (8-23) mg/dL Creatinine 1.12 (0.70-1.30) mg/dL Glucose 106 H (70-105) mg/dL Calcium 8.3 L (8.6-10.3) mg/dL Adrenal panel 11/08/17 Range/Units 04:16 Sodium 138 (136-145) mEq/L Potassium 4.1 (3.5-5.1) mEq/L Chloride 112 H (98-107) mEq/L Carbon Dioxide 17 L (23-29) mEq/L BUN 31 H (8-23) mg/dL Creatinine 1.12 (0.70-1.30) mg/dL Glucose 106 H (70-105) mg/dL Calcium 8.3 L (8.6-10.3) mg/dL All other labs normal. - Imaging CT scan - abdomen: report reviewed, image reviewed CT scan - pelvis: report reviewed, image reviewed - Attending Attestation I have personally performed a face to face evaluation on this patient. I have reviewed and agree with the care plan. History and Exam by me shows:
[2017-11-06] MEDS: Thiamine (B-1) 100 MG TABLET PO SCH (08:25)
[2017-11-06] MEDS: Lactobacillus 1 EACH CAP.SPRINK PO SCH (08:25)
[2017-11-06] MEDS: MetroNIDAZOLE 500 MG/100 ML 500 MG/100 ML BAG IVPB SCH ×2 (08:26→16:46)
[2017-11-06] MEDS: Cholecalciferol (D-3) 1,000 UNIT TABLET PO SCH (08:26)
[2017-11-06] MEDS: Folic Acid 1 MG TABLET PO SCH (08:26)
[2017-11-06] MEDS ORDERED: Ketotifen Fumarate [Zaditor] OP SCH (09:00)
[2017-11-06 09:29] LABS: Hematocrit 35.4 % (37.5-50.1)
[2017-11-06 09:34] LABS: Hemoglobin 12.1 g/dL (12.9-16.9)
--- NOTE | 2017-11-06 12:46 | Internal Med Progress Note ---
Date of Encounter: 11/06/17 Time of Encounter: 12:44 - Assessment and plan (1) GI bleed Current Visit: Yes Status: Acute Assessment and plan: Given history of alcohol abuse patient has been placed on octreotide drip. No evidence of hematemesis. An attempt at an NG tube was done in the ED but failed. We will continue with the Protonix drip started in the ED. Dr. Beth has been consulted. H&H every 6 hours. Stop aspirin. Nothing by mouth. - Surgery consulted, recommendations appreciated. Recommends GI evaluation due to possible varicies as cause. - GI constuled. Continue octreotide drip for now - Continue protonix drip, cipro/flagyl, octreotide drip - Monitor H&H and transfuse as needed. Qualifiers: GI bleed type/associated pathology: unspecified gastrointestinal hemorrhage type Qualified Code(s): K92.2 - Gastrointestinal hemorrhage, unspecified (2) Colitis Current Visit: Yes Status: Acute Assessment and plan: Placed patient on IV Cipro and Flagyl. Gentle hydration. Follow-up ESR and CRP and GI panel. (3) Elevated troponin Current Visit: Yes Status: Acute Assessment and plan: Likely demand ischemia. Trend cardiac enzymes. Echo ardiogram during this admission: LVEF 60%, mild LV diastolic dysfunction, EKG with no ST or T-wave changes. Troponin now negative. (4) Acute blood loss anemia Current Visit: Yes Status: Acute Assessment and plan: Patient has been ordered 2 units of PRBCs in the ED. We will trend H&H every 6 hours. Admitted to the ICU. Has 2 large bore IVs. Total now administered 3 units PRBC this admission. (5) Diabetes mellitus Current Visit: Yes Status: Acute Assessment and plan: We will place the patient insulin sliding scale. Accu-Cheks. Qualifiers: Diabetes mellitus type: type 2 Diabetes mellitus prison insulin use: without long term care social worker use Diabetes mellitus complication status: with neurologic complications Diabetes mellitus complication detail: with unspecified neuropathy Qualified Code(s): E11.40 - Type 2 diabetes mellitus with diabetic neuropathy, unspecified (6) Alcohol dependence Current Visit: Yes Status: Acute Assessment and plan: Patient has been going through detox for the last 3 weeks or so. We will continue thiamine, folic acid, and multivitamins. Not likely to go through withdrawals. We will monitor. Qualifiers: Substance use status: in remission Qualified Code(s): F10.21 - Alcohol dependence, in remission (7) Depression Current Visit: Yes Status: Acute Assessment and plan: Continue home medications. Qualifiers: Depression Type: unspecified Qualified Code(s): F32.9 - Major depressive disorder, single episode, unspecified (8) CHF (congestive heart failure) Current Visit: Yes Status: Acute Assessment and plan: History of it reportedly. Patient had distended abdomen likely ascites from liver disease Echocardiogram dueing this admission failure unremarkable with LVEF 60% and notes mild diastolic dysfunction. Qualifiers: Heart failure type: unspecified Heart failure chronicity: unspecified Qualified Code(s): I50.9 - Heart failure, unspecified (9) Hypertension Current Visit: Yes Status: Acute Assessment and plan: Hold antihypertensives. Patient was hypotensive on admission and is currently lower-normal range. Qualifiers: Hypertension type: essential hypertension Qualified Code(s): I10 - Essential (primary) hypertension (10) DVT prophylaxis Current Visit: Yes Status: Acute Assessment and plan: SCDs - Time Spent With Patient Total time spent is greater than 50% in coordination of care (as documented) at patient's floor/unit and/or counseling patient: - Subjective Interval history: Patient had no acute events overnight. Nursing reports had normal BM this morning without any blood in stool. Patient denies CP, SOB, melena, hematochezia. - Constitutional Vitals: Temp Pulse Resp BP Pulse Ox 97.6 F 70 14 109/70 97 11/06/17 12:30 11/06/17 12:00 11/06/17 12:00 11/06/17 12:00 11/06/17 12:00 - Head Head exam: Present: atraumatic, normocephalic - Eye Eye exam: Present: PERRL, conjuntiva pink, sclera anicteric Pupils: Present: PERRL - Neck Neck exam general surgery: Present: supple, trachea midline. Absent: lymphadenopathy - Respiratory Respiratory exam: Present: CTAB. Absent: accessory muscle use, rales, rhonchi, wheezes - Cardiovascular Cardiovascular exam: Present: RRR, +S1, +S2. Absent: diastolic murmur, gallop, rubs, systolic murmur - GI/Abdominal GI/Abdominal exam: Present: distended, normal bowel sounds, soft, no peritoneal signs. Absent: tenderness - Extremities Exam Extremities exam: Present: warm, radial pulses palpable and symmetrical. Absent : calf tenderness, cyanotic, pedal edema - Neurological Exam Neurological exam: Present: CN II-XII intact, oriented X3, no focal deficits. Absent: pronater drift, facial droop, speech deficit - Skin Skin exam: Present: dry, intact Internal Medicine: Result - Labs CBC & Chem 7: 11/06/17 09:19 11/06/17 05:26 Labs: Short CBC 11/06/17 11/06/17 Range/Units 05:26 09:19 WBC 7.0 (4.3-11.1) K/mcL Hgb 9.9 L D 12.1 L D (12.9-16.9) g/dL Hct 28.4 L 35.4 L (37.5-50.1) % Plt Count 111 L (140-400) K/mcL Neutrophils # 4.7 (1.6-8.9) K/mcL BMP 11/06/17 05:26 Sodium 134 L Potassium 4.5 Chloride 109 H Carbon Dioxide 17 L BUN 45 H Creatinine 1.23 Glucose 88 Calcium 7.9 L Cardiac Enzymes 11/06/17 11/06/17 Range/Units 05:26 09:19 Troponin I < 0.03 < 0.03 (< 0.04) ng/mL Liver Function 11/06/17 Range/Units 05:26 Total Bilirubin 2.6 H (0.3-1.0) mg/dL AST 44 H (13-39) Units/L ALT 15 (7-52) Units/L Alkaline Phosphatase 150 H (34-104) Units/L Albumin 2.4 L (3.5-5.7) g/dL - ABG Interpretation ABG results: PT/INR, D-dimer PT 13.1 Seconds (9.4-12.1) H 11/05/17 20:53 - Impressions Impressions Echocardiogram 11/06/17 23:42 Impressions: LVEF 60%. Not all LV segments are well visualized. Mild left ventricular diastolic dysfunction. Normal right ventricular structure and function. No significant valvular dysfunction. No pulmonary hypertension. Pleural effusion is not seen on this study. Left Ventricular Wall Motion: Rest Echo Findings The apical anterior, mid anterior and basal anterior hampton were not visualized. All other wall segments showed normal motion. Findings: Study Quality * Technically adequate exam. ECG Findings * Normal sinus rhythm. Left Ventricle * LVEF 60%. * Mild left ventricular diastolic dysfunction. * Normal LV chamber size and wall thickness. Right Ventricle * Normal right ventricular structure and function. Left Atrium * Normal left atrial size. Right Atrium * Normal right atrial size. Mitral Valve * Normal mitral valve structure. * No mitral stenosis. * Trace mitral regurgitation. Aortic Valve * Trileaflet aortic valve. * No aortic stenosis. * Trace aortic regurgitation. Tricuspid Valve * Trace tricuspid regurgitation. * Normal tricuspid valve structure. * Estimated RA pressure is 8 mmHg. * Estimated RVSP is 30 mmHg. * No pulmonary hypertension. Pulmonic Valve * Pulmonic valve is not well visualized. * No pulmonic stenosis. * No pulmonic regurgitation. Pulmonary Artery * Pulmonary artery not well visualized. Aorta * Normally sized aortic root. Pericardium * There is no pericardial effusion present. Interatrial Septum * No evidence of PFO by color Doppler. IVC * The IVC is not dilated. * < 50% respiratory change. - VTE Documentation of Mechanical Device: Intermittent pneumatic compression device Consult Discharge Plan - Plan [facility]errals: [facility] [Primary Care Provider] - Elizabeth Hopkins [Family Provider] -
[2017-11-06 16:26] LABS: Hematocrit 37.8 % (37.5-50.1); Hemoglobin 12.4 g/dL (12.9-16.9)
--- NOTE | 2017-11-06 16:48 | Electrocardiograph Report ---
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
[2017-11-06 19:37] LABS: Adenovirus F 40/41 PCR Not detected (Not detect); Astrovirus PCR Not detected (Not detect); C.difficile Toxin A/B by PCR See reflex test (Not detect); Campylobacter by PCR Not detected (Not detect); Cryptosporidium by PCR Not detected (Not detect); Cyclospora cayetanensis PCR Not detected (Not detect); E. coli O157 by PCR Not detected (Not detect); Entamoeba histolytica PCR Not detected (Not detect); Enteroaggregative E.coli(EAEC) Not detected (Not detect); Enteropathogenic E.coli(EPEC) Not detected (Not detect); Enterotoxigenic E.coli (ETEC) Not detected (Not detect); Giardia lamblia PCR Not detected (Not detect); Norovirus GI/GII PCR Not detected (Not detect); Plesiomonas shigelloides PCR Not detected (Not detect); Rotavirus A PCR Not detected (Not detect); Salmonella PCR Not detected (Not detect); Sapovirus PCR Not detected (Not detect); Shig/EnteroinvasiveE coli EIEC Not detected (Not detect); Shigalike tox-prod E coli STEC Not detected (Not detect); Vibrio PCR Not detected (Not detect); Vibrio cholerae PCR Not detected (Not detect); Yersinia enterocolitica PCR Not detected (Not detect)
[2017-11-06] MEDS: traZODone 50 MG TABLET PO SCH (20:43)
[2017-11-06 22:37] LABS: Hematocrit 32.1 % (37.5-50.1)
[2017-11-06 22:39] LABS: Hemoglobin 10.8 g/dL (12.9-16.9)
[2017-11-06] MEDS: Vancomycin Oral Soln 125 MG/2.5 ML UDC PO SCH (23:56)
[2017-11-07] MEDS: MetroNIDAZOLE 500 MG/100 ML 500 MG/100 ML BAG IVPB SCH ×3 (00:06→18:11)
[2017-11-07] MEDS: Pantoprazole 40 MG in 0.9 % Sodium Chloride Mini Bag 100 ML IVC SCH ×5 (00:07→23:45)
[2017-11-07] MEDS: Insulin LISPRO 300 UNITS/3 ML VIAL SQ SCH ×4 (01:17→21:42)
[2017-11-07 04:49] LABS: Hematocrit 29.9 % (37.5-50.1); Hemoglobin 10.5 g/dL (12.9-16.9)
[2017-11-07 04:50] LABS: Basophils % 0.3 %; Eosinophils # 0.2 K/mcL (0.0-0.6); Eosinophils % 2.6 %; Hematocrit 30.7 % (37.5-50.1); Hemoglobin 10.3 g/dL (12.9-16.9); Immature Granulocytes % 0.7 % (0-4); Lymphocytes # 1.1 K/mcL (0.6-4.6); Lymphocytes % 18.4 %; Mean Corpuscular HGB Conc 33.6 g/dL (31.6-35.5); Mean Corpuscular Hemoglobin 32.7 pg (28.0-33.3); Mean Corpuscular Volume 97.5 fL (83.0-100.0); Mean Platelet Volume 10.7 fL (9.4-12.4); Monocytes # 0.4 K/mcL (0.0-1.3); Monocytes % 6.4 %; Neutrophils # 4.4 K/mcL (1.6-8.9); Platelet Count 118 K/mcL (140-400); Red Blood Count 3.15 M/mcL (4.19-5.50); Red Cell Distribution Width 18.6 % (11.5-14.5); Segmented Neutrophils % 71.6 %
[2017-11-07 05:13] LABS: BUN/Creatinine Ratio 33 (6-26); Blood Urea Nitrogen 38 mg/dL (8-23); Calcium 8.4 mg/dL (8.6-10.3); Carbon Dioxide 18 mEq/L (23-29); Chloride 109 mEq/L (98-107); Glucose 114 mg/dL (70-105); Osmolality,Calculated 290 (280-300); Potassium 4.5 mEq/L (3.5-5.1); Sodium 135 mEq/L (136-145); eGFR For African Americans > 60 (> 60); eGFR For Non-African Americans > 60 (> 60)
[2017-11-07] MEDS: Vancomycin Oral Soln 125 MG/2.5 ML UDC PO SCH ×3 (06:03→18:26)
--- NOTE | 2017-11-07 08:40 | General Surgery Progress Note ---
Date of Encounter: 11/07/17 Time of Encounter: 08:15 - Assessment and Plan (1) Colitis Current Visit: Yes Status: Acute C-diff positive NPO IV fluids IV antibiotics- Cipro, Flagyl, Vancomycin (PO) Supportive care and pain control Serial abdominal exams Surgery will continue to follow for recommendations (2) Anemia Current Visit: Yes Status: Acute Acute on chronic Hgb- 10.8>10.5>10.3 Stable Total of 3 units PRBC transfused Continue to monitor GI consulted for possible EGD Qualifiers: Anemia type: unspecified type Qualified Code(s): D64.9 - Anemia, unspecified (3) Esophageal varices Current Visit: Yes Status: Chronic Report from the [place]- history of Grade 3 esophageal varicies GI consulted for possible EGD Currently on Octreotide Protonix gtt Qualifiers: Esophageal varices type: unspecified type Esophageal varices bleeding: with bleeding Qualified Code(s): I85.01 - Esophageal varices with bleeding (4) CHF (congestive heart failure) Current Visit: Yes Status: Acute Management per primary team Qualifiers: Heart failure type: unspecified Heart failure chronicity: unspecified Qualified Code(s): I50.9 - Heart failure, unspecified (5) Portal hypertension Current Visit: Yes Status: Acute Management per primary team (6) Ascites Current Visit: Yes Status: Acute Management per primary team Qualifiers: Ascites type: due to alcoholic cirrhosis Qualified Code(s): K70.31 - Alcoholic cirrhosis of liver with ascites Subjective Patient reports: no new complaints, feels better, still having pain (Left groin with movement), pain is less, voiding w/o difficulty, no flatus (none today), bowel movement, diarrhea (2 bowel movement noted yesterday), afebrile Objective Vital Signs - Last 8 Hours Temp Pulse Resp BP Pulse Ox 11/07/17 07:00 97.2 F L 11/07/17 06:00 75 11 111/79 95 11/07/17 05:11 97.4 F L 11/07/17 05:00 69 11 99/78 96 11/07/17 04:00 83 15 112/87 94 11/07/17 03:00 66 12 111/74 96 11/07/17 02:00 69 11 76/52 95 11/07/17 01:00 81 12 114/78 96 11/07/17 00:51 97.5 F L Intake and Output 11/06/17 11/07/17 11/07/17 23:59 07:59 15:59 Intake Total 416 / 416 100 / 100 Output Total 250 / 250 250 / 250 Balance 166 / 166 -150 / -150 Intake: IV Fluids 404 / 404 100 / 100 SandoSTATIN 400 MCG In 0.9 % 104 / 104 Sodium Chloride 100 ML @ 50 MCG /HR 13 mls/hr IVC .Q8H KAYLENE Rx#: [id number] Protonix 40 MG In 0.9 % Sodium 200 / 200 100 / 100 Chloride (Mini-Bag +) 100 ML @ 20 mls/hr IVC .Q5H KAYLENE Rx#: [id number] Flagyl Premix 500 MG/100 ML 500 100 / 100 mg In 100 ml @ 100 mls/hr IVPB Q8HR KAYLENE Rx#:[id number] Oral Output: Urine 250 / 250 250 / 250 Other: Stool Size Small Stool Consistency loose Stool Color Brown Yellow # Voids 1 1 # Bowel Movements 1 0 Blood Glucose* 95 142 - General physical appearance well developed, well nourished, no distress - Eyes normal ocular movement - ENT normal mucosa, atraumatic, normocephalic - Neck Neck exam: trachea midline - Respiratory normal respiratory effort, clear to auscultation - Cardiovascular Cardiovascular exam: Present: RRR - Abdomen Abdomen: Present: bowel sounds present (hyperactive), soft, tender (minimal ( left groin with movement)) - Neurologic CN 2-12 grossly intact - Psychiatric oriented to time, oriented to person, oriented to place, speech is normal, memory intact - Labs 11/07/17 04:37 11/07/17 04:37 Diabetes panel 11/07/17 Range/Units 04:37 Sodium 135 L (136-145) mEq/L Potassium 4.5 (3.5-5.1) mEq/L Chloride 109 H (98-107) mEq/L Carbon Dioxide 18 L (23-29) mEq/L BUN 38 H (8-23) mg/dL Creatinine 1.14 (0.70-1.30) mg/dL Glucose 114 H (70-105) mg/dL Calcium 8.4 L (8.6-10.3) mg/dL Calcium panel 11/07/17 Range/Units 04:37 Calcium 8.4 L (8.6-10.3) mg/dL Pituitary panel 11/07/17 Range/Units 04:37 Sodium 135 L (136-145) mEq/L Potassium 4.5 (3.5-5.1) mEq/L Chloride 109 H (98-107) mEq/L Carbon Dioxide 18 L (23-29) mEq/L BUN 38 H (8-23) mg/dL Creatinine 1.14 (0.70-1.30) mg/dL Glucose 114 H (70-105) mg/dL Calcium 8.4 L (8.6-10.3) mg/dL Adrenal panel 11/07/17 Range/Units 04:37 Sodium 135 L (136-145) mEq/L Potassium 4.5 (3.5-5.1) mEq/L Chloride 109 H (98-107) mEq/L Carbon Dioxide 18 L (23-29) mEq/L BUN 38 H (8-23) mg/dL Creatinine 1.14 (0.70-1.30) mg/dL Glucose 114 H (70-105) mg/dL Calcium 8.4 L (8.6-10.3) mg/dL - VTE Documentation of Mechanical Device: Intermittent pneumatic compression device Consult Discharge Plan - Plan [facility]errals: [facility] [Primary Care Provider] - Elizabeth Hopkins [Family Provider] - - Attending Attestation For this encounter, I have reviewed the GRAY TENDER or PA documentation, treatment plan, and medical decision making; and I have had face to face time with this patient.
[2017-11-07] MEDS: Octreotide 400 MCG in 0.9 % Sodium Chloride 100 ML IVC SCH ×3 (08:43→22:09)
[2017-11-07] MEDS ORDERED: Ringers Solution, Lactated 1,000 ML IVC SCH (09:00)
[2017-11-07 10:40] LABS: Hematocrit 33.7 % (37.5-50.1); Hemoglobin 11.7 g/dL (12.9-16.9)
--- NOTE | 2017-11-07 13:18 | Anesthesia Evaluation PreOp ---
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 History: Other (peripheral neuropathy, Depression) Other Medical History: Hepatic (cirrhosis), Diabetes Type II, GERD, Other ( prostate CA) Anesthesia History: No Prior Anesthetic Complications, Past Anesthesia (Renal Stones) Alcohol Use: heavy Drug use: none Medications and Allergies Allopurinol [Zyloprim 100 MG] 100 mg PO DAILY 11/05/17 [History] Aspirin [Adult Aspirin] 81 mg PO DAILY 11/05/17 [History] Cholecalciferol (Vitamin D3) [Vitamin D3] 1,000 mg PO DAILY 11/05/17 [History] Folic Acid [Folic Acid] 2 mg PO DAILY 11/05/17 [History] Hydrocortisone/Pramoxine [Proctofoam-Hc 1%-1% Foam] 1 appl RC BID PRN 11/05/17 [ History] Ibuprofen [Ibu] 600 mg PO QID 11/05/17 [History] Ketotifen Fumarate [Zaditor] 1 drop OP BID 11/05/17 [History] Lactobacillus Acidophilus [Acidophilus Lactobacillus] 1 cap PO DAILY 11/05/17 [ History] Lactulose [Lactulose] 30 ml PO TID 11/05/17 [History] Lisinopril-HCTZ 20-12.5 [Prinzide 20-12.5] 1 tab PO DAILY 11/05/17 [History] Metformin HCl [Metformin HCl] 1,000 mg PO BID 11/05/17 [History] Methyl Salicylate/Menthol [Muscle Rub Cream] 1 appl TP TID 11/05/17 [History] Nystatin POWDER [Nystop] 1 appl TP BID 11/05/17 [History] Omeprazole [PriLOSEC] 20 mg PO BID 11/05/17 [History] Propylene Glycol/Peg 400/Pf [Systane Ultra 0.4-0.3% Eye Drp] 1 drop OP DAILY 09/19 [History] Sertraline [Zoloft] 100 mg PO DAILY 11/05/17 [History] Thiamine HCl [Vitamin B-1] 100 mg PO DAILY 11/05/17 [History] Trazodone HCl 100 mg PO HS 11/05/17 [History] 3 Allergy/AdvReac Type Severity Reaction Status Date / Time No Known Allergies Allergy Verified 11/05/17 20:52 - Meds/Allergy Pre-op Review Medications Reviewed: Yes Allergies Reviewed: Yes Beta Blockers on Current Med List: No Anesthesia Results - Labs 11/07/17 10:10 11/07/17 04:37 Echocardiogram Name: Poli Maldonado Date of Study: 11/06/2017 EV/EV echocardiogram Impressions: LVEF 60%. Not all LV segments are well visualized. Mild left ventricular diastolic dysfunction. Normal right ventricular structure and function. No significant valvular dysfunction. No pulmonary hypertension. Pleural effusion is not seen on this study. - Imaging EKG: report reviewed (SINUS RHYTHM RIGHT BUNDLE BRANCH BLOCK) Anesthesia Exam Vital Signs/O2 Sat, Most Current Temp Pulse Resp BP Pulse Ox 97.6 F 76 14 123/76 96 11/07/17 11:36 11/07/17 12:00 11/07/17 12:00 11/07/17 12:00 11/07/17 12:00 - HEENT Pupil (Motor): Pupils equal, EOMI Mallampati: I Teeth: Normal Oral Opening: Greater than 3 - CHIEF SERVICE OBSERVER LOC: Oriented CHIEF SERVICE OBSERVER Motor: Normal RUE, Normal LUE, Normal RLE, Normal LLE, Normal Face CHIEF SERVICE OBSERVER Sensory: Normal: RUE, LUE, RLE, LLE, Face - Cardiac Rhythm: Regular Murmur: None JVD: No Carotid Bruit: No - Pulmonary Breath Sounds: bilateral Clear Respiratory Effort: Symmetrical Anesthesia Assess/Plan ASA Score: 3 Modified [place] Scale for Level of Consciousness: Cooperative, oriented, and tranquil Anesthetic Plan: MAC Recovery Plan: Other
[2017-11-07] MEDS ORDERED: *HR* Propofol 200 MG/20 ML VIAL IVP ONE ×2 (13:52)
--- NOTE | 2017-11-07 14:11 | Gastroenterology Consult Note ---
<MastKeyshawn Webb - Last Filed: 11/07/17 14:09> Date of Encounter: 11/07/17 Time of Encounter: 10:55 - Assessment and plan (1) GI bleed Current Visit: Yes Status: Acute Assessment and plan: Pt with melena for the past 2 months. Plan for EGD today to r/o esophagitis, gastritis, duodenitis, PUD, MW tear, or AVM. Continue PPI. Qualifiers: GI bleed type/associated pathology: unspecified gastrointestinal hemorrhage type Qualified Code(s): K92.2 - Gastrointestinal hemorrhage, unspecified (2) Esophageal varices Current Visit: Yes Status: Chronic Assessment and plan: Due to cirrhosis. Complete EGD today. Continue Octreotide. Qualifiers: Esophageal varices type: unspecified type Esophageal varices bleeding: with bleeding Qualified Code(s): I85.01 - Esophageal varices with bleeding (3) Anemia Current Visit: Yes Status: Acute Assessment and plan: Hgb 7.8 on admission and 10.3 today. Continue to monitor CBC and transfuse PRBC as needed. Plan for EGD today. Qualifiers: Anemia type: unspecified type Qualified Code(s): D64.9 - Anemia, unspecified (4) Cirrhosis Current Visit: Yes Status: Acute Assessment and plan: MELD-NA 17, Child-Benjamin class B, DF 14.1. CT abdomen and pelvis that contrast showed evidence of thickened appearance of the cecum and ascending colon reflecting possible colitis, mild to moderate ascites, and slightly nodular appearance of the liver. Check AFP and liver US to r/o HCC. Lifestyle Changes: 1. Total abstinence from alcohol including social drinking. 2. No smoking 3. Gradual loss of weight 4. Drink at least 3 cups of coffee due to its antioxidant effects in the liver, it reduces risk of HCC and advance fibrosis 5. If needed, use less than 2 g/day of Tylenol (in divided doses). 6. Vaccination for Hep A, B, Pneumococcus if not already received and yearly influenza vaccination by PCP 7. Avoid NSAIDS as can cause kidney damage 8. Avoid benzodiazepines and other sedatives such as anti-histamines, narcotics etc. as can cause encephalopathy or confusion 9. Take a late carbohydrate meal supplement as it reduces glucose production from protein breakdown and thus improves nutrition. 10. In cirrhosis, statins are safe to use and also improve portal hypertension and decrease risk of HCC. 11. Screening: o Hepatocellular cancer screening: US of liver, and AFP every 6 months Qualifiers: Hepatic cirrhosis type: alcoholic cirrhosis Ascites presence: with ascites Qualified Code(s): K70.31 - Alcoholic cirrhosis of liver with ascites (5) Alcohol dependence Current Visit: Yes Status: Acute Qualifiers: Substance use status: in remission Qualified Code(s): F10.21 - Alcohol dependence, in remission (6) Colitis Current Visit: Yes Status: Acute Assessment and plan: Management per surgery. - Time Spent With Patient Total time spent is greater than 50% in coordination of care (as documented) at patient's floor/unit and/or counseling patient: GI History of Present Illness - Data of Consult Patient: new to practice Consult date: 11/07/17 Requesting Physician: River Cuevas - Consult Narrative Reason for consult: Tarry stools, esophageal varices History of present illness: Mr. Maldonado is a 72 year old male with PMHx of alcoholic liver cirrhosis, report from the [facility]- history of Grade 3 esophageal varicies, cognitive dysfunction, diabetes mellitus, reported history of CHF, alcohol dependence who is in detox currently at the [facility], hypertension, ROBER, peripheral neuropathy, who was sent from the [facility] where he had laboratory workup that showed a hemoglobin of 7.9 with reported bloody stools. The patient has no previous labs in our system but the patient had labs sent with him from earlier this year with his hemoglobin being 12.3 back in September and has progressively been declining ever since. The patient reportedly has been having black stools for the last 2 months. It initially started as bright red blood and turned into dark stools. No nausea, vomiting, or abdominal pain. The patient has been a resident of the [facility] for alcohol detox for the last 3 weeks. His reported he had been drinking approximately 1.5 pints of Marcos Yang daily for at least the last year. She reports he would get up in the middle of the night to take shots. The patient states he was drinking 8oz per day. His reported his last colonoscopy was 2015 at the [facility] [place], but wasunsure about his last EGD. CT abdomen and pelvis that contrast showed evidence of thickened appearance of the cecum and ascending colon reflecting possible colitis, mild to moderate ascites, and slightly nodular appearance of the liver. He was started on Cipro and Flagyl for his colitis. He was started on octrotide for possible varices. Procedures: Colonoscopy 2016 at [facility] NSAIDs: ASA Anticoagulation: None Past Med Surg Social Fam HX - Past Medical History Medical history: diabetes, GERD Additional medical history: ETOH detox Psychiatric history: no psych history - Past Surgical History Surgical History: no surgical history - Social History Smoking Status: Never smoker Smokeless Tobacco Status: No Alcohol use: none Drug use: none - Gastrointestinal Gastrointestinal: Present: as per HPI - Constitutional Constitutional: as per HPI - EENT Eyes: as per HPI Ears: Present: as per HPI Nose, mouth and throat: Present: as per HPI - Cardiovascular Cardiovascular ROS: Present: as per HPI - Respiratory Respiratory IM: Present: as per HPI - Genitourinary Genitourinary: Absent: change in color, Urinary frequency - Neurological ROS Neurological GI: Present: as per HPI - Hematologic/Lymphatic Hematologic/Lymphatic pediatric: Present: as per HPI - Musculoskeletal Musculoskeletal ROS GI: Present: as per HPI - Integumentary Integumentary GI: Present: as per HPI - Psychiatric ROS Psychiatric GI: Present: as per HPI - Endocrine Endocrine IM: Present: as per HPI - Constitutional Vitals: Temp Pulse Resp BP Pulse Ox 97.6 F 76 14 123/76 96 11/07/17 11:36 11/07/17 12:00 11/07/17 12:00 11/07/17 12:00 11/07/17 12:00 General appearance: Present: cooperative, A&O X 3, no acute distress, answers questions appropriately - Head Head exam: Present: atraumatic, normocephalic - Eye Eye exam: Present: normal appearance, sclera anicteric - ENT ENT exam: Present: mucous membranes dry - Neck Neck exam general surgery: Present: normal inspection, trachea midline - Respiratory Respiratory exam: Present: CTAB. Absent: rales, rhonchi - Cardiovascular Cardiovascular exam: Present: RRR, +S1, +S2 - GI/Abdominal GI/Abdominal exam: Present: soft, no peritoneal signs. Absent: distended, firm , guarding, tenderness - Rectal Rectal exam: Present: deferred - Extremities Exam Extremities exam: Present: warm - Neurological Exam Neurological exam: Present: no focal deficits - Psychiatric Psychiatric exam: Present: normal affect, normal mood - Skin Skin exam: Present: dry, intact, normal color, warm Results - Labs CBC & Chem 7: 06/06/18 10:10 11/07/17 04:37 Labs: Last Result ESR 35 mm/hr (0-10) H 11/05/17 20:53 Calcium 8.4 mg/dL (8.6-10.3) L 11/07/17 04:37 Troponin I < 0.03 ng/mL (< 0.04) 11/06/17 09:19 C-Reactive Protein 27 mg/L (Less than 10) H 11/05/17 20:53 Entire Visit Hgb 11.7 g/dL (12.9-16.9) L 11/07/17 10:10 Hct 33.7 % (37.5-50.1) L 11/07/17 10:10 PT 13.1 Seconds (9.4-12.1) H 11/05/17 20:53 Total Bilirubin 2.6 mg/dL (0.3-1.0) H 11/06/17 05:26 AST 44 Units/L (13-39) H 11/06/17 05:26 ALT 15 Units/L (7-52) 11/06/17 05:26 Lipase 119 Units/L (11-82) H 11/05/17 20:53 - ABG ABG results: PT/INR, D-dimer PT 13.1 Seconds (9.4-12.1) H 11/05/17 20:53 Consult Discharge Plan - Plan [facility]errals: [facility] [Primary Care Provider] - Elizabeth Hopkins [Family Provider] - <Gudelia Turner - Last Filed: 11/07/17 14:57> Date of Encounter: 11/07/17 Time of Encounter: 14:00 - Time Spent With Patient Total time spent is greater than 50% in coordination of care (as documented) at patient's floor/unit and/or counseling patient: GI History of Present Illness - Data of Consult Requesting Physician: River Cuevas - Consult Narrative History of present illness: Mr. Maldonado is a 72 year old male - Constitutional Vitals: Temp Pulse Resp BP Pulse Ox 97.6 F 77 16 130/45 97 11/07/17 11:36 11/07/17 14:23 11/07/17 14:23 11/07/17 14:23 11/07/17 14:23 Results - Labs CBC & Chem 7: 11/07/17 10:10 11/07/17 04:37 Labs: Last Result ESR 35 mm/hr (0-10) H 11/05/17 20:53 Calcium 8.4 mg/dL (8.6-10.3) L 11/07/17 04:37 Troponin I < 0.03 ng/mL (< 0.04) 11/06/17 09:19 C-Reactive Protein 27 mg/L (Less than 10) H 11/05/17 20:53 Entire Visit Hgb 11.7 g/dL (12.9-16.9) L 11/07/17 10:10 Hct 33.7 % (37.5-50.1) L 11/07/17 10:10 PT 13.1 Seconds (9.4-12.1) H 11/05/17 20:53 Total Bilirubin 2.6 mg/dL (0.3-1.0) H 11/06/17 05:26 AST 44 Units/L (13-39) H 11/06/17 05:26 ALT 15 Units/L (7-52) 11/06/17 05:26 Lipase 119 Units/L (11-82) H 11/05/17 20:53 - ABG ABG results: PT/INR, D-dimer PT 13.1 Seconds (9.4-12.1) H 11/05/17 20:53 - Attending Attestation I have personally performed a face to face evaluation on this patient. I have reviewed and agree with the care plan. History and Exam by me shows: Pt seen, he denies any abdominal pain but does has black stool for the last 2 months. Abdomen is benign. Assessment patient with C. difficile colitis #[address]ena and CT scan is showing varices. Recommendation: Patient will have EGD done with possible banding if found to have large varices
[2017-11-07] MEDS ORDERED: EPHEDrine 50 MG/ML VIAL ONE (14:13)
--- NOTE | 2017-11-07 15:12 | Internal Med Progress Note ---
Date of Encounter: 11/07/17 Time of Encounter: 16:08 - Assessment and plan (1) GI bleed Current Visit: Yes Status: Acute Assessment and plan: Given history of alcohol abuse patient has been placed on octreotide drip. No evidence of hematemesis. An attempt at an NG tube was done in the ED but failed. We will continue with the Protonix drip started in the ED. Dr. Beth has been consulted. H&H every 6 hours. Stop aspirin. Nothing by mouth. - Continue protonix drip, cipro/flagyl, octreotide drip - Monitor H&H and transfuse as needed. EGD showed esophageal varicies and had banding. GI following, recs appreciated Qualifiers: GI bleed type/associated pathology: unspecified gastrointestinal hemorrhage type Qualified Code(s): K92.2 - Gastrointestinal hemorrhage, unspecified (2) Colitis Current Visit: Yes Status: Acute Assessment and plan: Placed patient on IV Cipro and Flagyl. Likely from C diff, Patient NPO at this current moment When tolerating PO switch to PO Vancomcyin. (3) Elevated troponin Current Visit: Yes Status: Acute Assessment and plan: Likely demand ischemia. Trend cardiac enzymes. Echo ardiogram during this admission: LVEF 60%, mild LV diastolic dysfunction, EKG with no ST or T-wave changes. Troponin now negative. (4) Acute blood loss anemia Current Visit: Yes Status: Acute Assessment and plan: Patient has been ordered 2 units of PRBCs in the ED. We will trend H&H every 6 hours. Admitted to the ICU. Has 2 large bore IVs. Total now administered 3 units PRBC this admission. Currently stable (5) Diabetes mellitus Current Visit: Yes Status: Acute Assessment and plan: We will place the patient insulin sliding scale. Accu-Cheks. Qualifiers: Diabetes mellitus type: type 2 Diabetes mellitus mcc insulin use: without termite inspector use Diabetes mellitus complication status: with neurologic complications Diabetes mellitus complication detail: with unspecified neuropathy Qualified Code(s): E11.40 - Type 2 diabetes mellitus with diabetic neuropathy, unspecified (6) Alcohol dependence Current Visit: Yes Status: Acute Assessment and plan: Patient has been going through detox for the last 3 weeks or so. We will continue thiamine, folic acid, and multivitamins. Not likely to go through withdrawals. We will monitor. Qualifiers: Substance use status: in remission Qualified Code(s): F10.21 - Alcohol dependence, in remission (7) Depression Current Visit: Yes Status: Acute Assessment and plan: Continue home medications. Qualifiers: Depression Type: unspecified Qualified Code(s): F32.9 - Major depressive disorder, single episode, unspecified (8) CHF (congestive heart failure) Current Visit: Yes Status: Acute Assessment and plan: History of it reportedly. Patient had distended abdomen likely ascites from liver disease Echocardiogram dueing this admission failure unremarkable with LVEF 60% and notes mild diastolic dysfunction. Qualifiers: Heart failure type: unspecified Heart failure chronicity: unspecified Qualified Code(s): I50.9 - Heart failure, unspecified (9) Hypertension Current Visit: Yes Status: Acute Assessment and plan: Hold antihypertensives. Patient was hypotensive on admission and is currently lower-normal range. Qualifiers: Hypertension type: essential hypertension Qualified Code(s): I10 - Essential (primary) hypertension (10) DVT prophylaxis Current Visit: Yes Status: Acute Assessment and plan: SCDs - Time Spent With Patient Total time spent is greater than 50% in coordination of care (as documented) at patient's floor/unit and/or counseling patient: - Subjective Interval history: Patient returned EGD Had varicies seen and had banded - Constitutional Vitals: Temp Pulse Resp BP Pulse Ox 97.6 F 77 16 130/45 97 11/07/17 11:36 11/07/17 14:23 11/07/17 14:23 11/07/17 14:23 11/07/17 14:23 - Head Head exam: Present: atraumatic, normocephalic - Eye Eye exam: Present: PERRL, conjuntiva pink, sclera anicteric Pupils: Present: PERRL - Neck Neck exam general surgery: Present: supple, trachea midline. Absent: lymphadenopathy - Respiratory Respiratory exam: Present: CTAB. Absent: accessory muscle use, rales, rhonchi, wheezes - Cardiovascular Cardiovascular exam: Present: RRR, +S1, +S2. Absent: diastolic murmur, gallop, rubs, systolic murmur - GI/Abdominal GI/Abdominal exam: Present: distended, normal bowel sounds, soft, no peritoneal signs. Absent: tenderness - Extremities Exam Extremities exam: Present: warm, radial pulses palpable and symmetrical. Absent : calf tenderness, cyanotic, pedal edema - Neurological Exam Neurological exam: Present: CN II-XII intact, oriented X3, no focal deficits. Absent: pronater drift, facial droop, speech deficit - Skin Skin exam: Present: dry, intact Internal Medicine: Result - Labs CBC & Chem 7: 11/07/17 10:10 11/07/17 04:37 Labs: Short CBC 11/06/17 11/06/17 11/07/17 Range/Units 15:59 22:13 04:37 WBC (4.3-11.1) K/mcL Hgb 12.4 L 10.8 L D 10.5 L (12.9-16.9) g/dL Hct 37.8 32.1 L 29.9 L (37.5-50.1) % Plt Count (140-400) K/mcL Neutrophils # (1.6-8.9) K/mcL 11/07/17 11/07/17 Range/Units 04:37 10:10 WBC 6.1 (4.3-11.1) K/mcL Hgb 10.3 L 11.7 L (12.9-16.9) g/dL Hct 30.7 L 33.7 L (37.5-50.1) % Plt Count 118 L (140-400) K/mcL Neutrophils # 4.4 (1.6-8.9) K/mcL BMP 11/07/17 04:37 Sodium 135 L Potassium 4.5 Chloride 109 H Carbon Dioxide 18 L BUN 38 H Creatinine 1.14 Glucose 114 H Calcium 8.4 L - ABG Interpretation ABG results: PT/INR, D-dimer PT 13.1 Seconds (9.4-12.1) H 11/05/17 20:53 - VTE Documentation of Mechanical Device: Intermittent pneumatic compression device Consult Discharge Plan - Plan Referrals: [facility] [Primary Care Provider] - Elizabeth Hopkins [Family Provider] -
[2017-11-07] MEDS: Lactobacillus 1 EACH CAP.SPRINK PO SCH (16:47)
[2017-11-07] MEDS: Folic Acid 1 MG TABLET PO SCH (16:47)
[2017-11-07] MEDS: Thiamine (B-1) 100 MG TABLET PO SCH (16:47)
[2017-11-07] MEDS: Cholecalciferol (D-3) 1,000 UNIT TABLET PO SCH (16:47)
[2017-11-07] MEDS: traZODone 50 MG TABLET PO SCH (22:09)
[2017-11-08] MEDS: MetroNIDAZOLE 500 MG/100 ML 500 MG/100 ML BAG IVPB SCH ×2 (00:56→10:04)
[2017-11-08] MEDS: Vancomycin Oral Soln 125 MG/2.5 ML UDC PO SCH ×6 (00:57→23:54)
[2017-11-08] MEDS: Insulin LISPRO 300 UNITS/3 ML VIAL SQ SCH ×4 (01:41→16:24)
[2017-11-08] MEDS: Pantoprazole 40 MG in 0.9 % Sodium Chloride Mini Bag 100 ML IVC SCH ×3 (04:23→10:36)
[2017-11-08 04:54] LABS: Basophils % 0.5 %; Eosinophils # 0.2 K/mcL (0.0-0.6); Eosinophils % 2.7 %; Hematocrit 31.1 % (37.5-50.1); Hemoglobin 10.6 g/dL (12.9-16.9); Immature Granulocytes % 0.7 % (0-4); Lymphocytes # 1.1 K/mcL (0.6-4.6); Lymphocytes % 20.5 %; Mean Corpuscular HGB Conc 34.1 g/dL (31.6-35.5); Mean Corpuscular Hemoglobin 33.4 pg (28.0-33.3); Mean Corpuscular Volume 98.1 fL (83.0-100.0); Mean Platelet Volume 10.5 fL (9.4-12.4); Monocytes # 0.3 K/mcL (0.0-1.3); Monocytes % 6.2 %; Neutrophils # 3.8 K/mcL (1.6-8.9); Platelet Count 118 K/mcL (140-400); Red Blood Count 3.17 M/mcL (4.19-5.50); Red Cell Distribution Width 18.3 % (11.5-14.5); Segmented Neutrophils % 69.4 %
[2017-11-08 05:09] LABS: BUN/Creatinine Ratio 28 (6-26); Blood Urea Nitrogen 31 mg/dL (8-23); Calcium 8.3 mg/dL (8.6-10.3); Carbon Dioxide 17 mEq/L (23-29); Chloride 112 mEq/L (98-107); Glucose 106 mg/dL (70-105); Osmolality,Calculated 293 (280-300); Potassium 4.1 mEq/L (3.5-5.1); Sodium 138 mEq/L (136-145); eGFR For African Americans > 60 (> 60); eGFR For Non-African Americans > 60 (> 60)
[2017-11-08] MEDS: Octreotide 400 MCG in 0.9 % Sodium Chloride 100 ML IVC SCH (06:50)
[2017-11-08] MEDS ORDERED: Pantoprazole 40 MG VIAL IVP SCH (09:45)
[2017-11-08] MEDS: Folic Acid 1 MG TABLET PO SCH (10:03)
[2017-11-08] MEDS: Lactobacillus 1 EACH CAP.SPRINK PO SCH (10:03)
[2017-11-08] MEDS: Thiamine (B-1) 100 MG TABLET PO SCH (10:03)
[2017-11-08] MEDS: Cholecalciferol (D-3) 1,000 UNIT TABLET PO SCH (10:03)
[2017-11-08] MEDS ORDERED: D5% in Water 1,000 ML IVC PRN (10:09)
--- NOTE | 2017-11-08 10:51 | Internal Med Progress Note ---
Date of Encounter: 11/08/17 Time of Encounter: 10:49 - Assessment and plan (1) GI bleed Current Visit: Yes Status: Acute Assessment and plan: Given history of alcohol abuse patient has been placed on octreotide drip. No evidence of hematemesis. An attempt at an NG tube was done in the ED but failed. Aspirin was held EGD showed esophageal varicies and had banding. GI following, recs appreciated - Diet advanced today. - Transition protonix drip to IV q12h - Continue monitoring VS and H&H - Appreciated GI recs on octreotide rx drip Qualifiers: GI bleed type/associated pathology: unspecified gastrointestinal hemorrhage type Qualified Code(s): K92.2 - Gastrointestinal hemorrhage, unspecified (2) Colitis Current Visit: Yes Status: Acute Assessment and plan: C diff colitis Diet being advanced to CLD - switch to PO vancomycin and DC cipro/flagyl (3) Elevated troponin Current Visit: Yes Status: Acute Assessment and plan: Likely demand ischemia. Echo ardiogram during this admission: LVEF 60%, mild LV diastolic dysfunction, EKG with no ST or T-wave changes. Troponin was since negative (4) Acute blood loss anemia Current Visit: Yes Status: Acute Assessment and plan: Patient has been ordered 2 units of PRBCs in the ED. We will trend H&H every 6 hours. Admitted to the ICU. Has 2 large bore IVs. Total now administered 3 units PRBC this admission. Currently stable (5) Diabetes mellitus Current Visit: Yes Status: Acute Assessment and plan: We will place the patient insulin sliding scale. Accu-Cheks. Qualifiers: Diabetes mellitus type: type 2 Diabetes mellitus assisted insulin use: without sales department supervisor use Diabetes mellitus complication status: with neurologic complications Diabetes mellitus complication detail: with unspecified neuropathy Qualified Code(s): E11.40 - Type 2 diabetes mellitus with diabetic neuropathy, unspecified (6) Alcohol dependence Current Visit: Yes Status: Acute Assessment and plan: Patient has been going through detox for the last 3 weeks or so. We will continue thiamine, folic acid, and multivitamins. Not likely to go through withdrawals. We will monitor. Qualifiers: Substance use status: in remission Qualified Code(s): F10.21 - Alcohol dependence, in remission (7) Depression Current Visit: Yes Status: Acute Assessment and plan: Continue home medications. Qualifiers: Depression Type: unspecified Qualified Code(s): F32.9 - Major depressive disorder, single episode, unspecified (8) CHF (congestive heart failure) Current Visit: Yes Status: Acute Assessment and plan: History of it reportedly. Patient had distended abdomen likely ascites from liver disease Echocardiogram dueing this admission failure unremarkable with LVEF 60% and notes mild diastolic dysfunction. Qualifiers: Heart failure type: unspecified Heart failure chronicity: unspecified Qualified Code(s): I50.9 - Heart failure, unspecified (9) Hypertension Current Visit: Yes Status: Acute Assessment and plan: Hold antihypertensives. Patient was hypotensive on admission and is currently lower-normal range. Qualifiers: Hypertension type: essential hypertension Qualified Code(s): I10 - Essential (primary) hypertension (10) DVT prophylaxis Current Visit: Yes Status: Acute Assessment and plan: SCDs - Time Spent With Patient Total time spent is greater than 50% in coordination of care (as documented) at patient's floor/unit and/or counseling patient: - Subjective Interval history: Patient returned EGD Had varicies seen and had banded on 11/07 Diet being advanced - Constitutional Vitals: Temp Pulse Resp BP Pulse Ox 97.8 F 86 16 117/73 96 11/08/17 07:31 11/08/17 07:31 11/08/17 07:31 11/08/17 07:31 11/08/17 07:31 - Head Head exam: Present: atraumatic, normocephalic - Eye Eye exam: Present: PERRL, conjuntiva pink, sclera anicteric Pupils: Present: PERRL - Neck Neck exam general surgery: Present: supple, trachea midline. Absent: lymphadenopathy - Respiratory Respiratory exam: Present: CTAB. Absent: accessory muscle use, rales, rhonchi, wheezes - Cardiovascular Cardiovascular exam: Present: RRR, +S1, +S2. Absent: diastolic murmur, gallop, rubs, systolic murmur - GI/Abdominal GI/Abdominal exam: Present: normal bowel sounds, soft, no peritoneal signs. Absent: distended, tenderness Additional comments: No longer distended. Does have truncal obesity - Extremities Exam Extremities exam: Present: warm, radial pulses palpable and symmetrical. Absent : calf tenderness, cyanotic, pedal edema - Neurological Exam Neurological exam: Present: CN II-XII intact, oriented X3, no focal deficits. Absent: pronater drift, facial droop, speech deficit - Skin Skin exam: Present: dry, intact Internal Medicine: Result - Labs CBC & Chem 7: 11/08/17 04:16 11/08/17 04:16 Labs: Short CBC 11/08/17 Range/Units 04:16 WBC 5.5 (4.3-11.1) K/mcL Hgb 10.6 L (12.9-16.9) g/dL Hct 31.1 L (37.5-50.1) % Plt Count 118 L (140-400) K/mcL Neutrophils # 3.8 (1.6-8.9) K/mcL BMP 11/08/17 04:16 Sodium 138 Potassium 4.1 Chloride 112 H Carbon Dioxide 17 L BUN 31 H Creatinine 1.12 Glucose 106 H Calcium 8.3 L - ABG Interpretation ABG results: PT/INR, D-dimer PT 13.1 Seconds (9.4-12.1) H 11/05/17 20:53 - Impressions Impressions Liver Ultrasound 11/08/17 09:00 IMPRESSION: Cirrhosis and ascites. No liver mass. D/ / Donny Whitmore MD / Donny Whitmore MD Interpreting Provider: Donny Whitmore MD - VTE Documentation of Mechanical Device: Intermittent pneumatic compression device Consult Discharge Plan - Plan [facility]errals: [facility] [Primary Care Provider] - Elizabeth Hopkins [Family Provider] -
--- NOTE | 2017-11-08 11:06 | Gastroenterology Progress Note ---
Date of Encounter: 11/08/17 Time of Encounter: 10:20 - Assessment and plan (1) GI bleed Current Visit: Yes Status: Acute Assessment and plan: EGD with one column of Grade III varices and two of Grade I, three bands placed , partal hypertensive gastropathy. Repeat EGD with banding in 2 months. Stop octreotide and PPI drip. Start omeprazole PO daily. Qualifiers: GI bleed type/associated pathology: unspecified gastrointestinal hemorrhage type Qualified Code(s): K92.2 - Gastrointestinal hemorrhage, unspecified (2) Esophageal varices Current Visit: Yes Status: Chronic Assessment and plan: Due to cirrhosis. EGD with one column of Grade III varices and two of Grade I, three bands placed, partal hypertensive gastropathy. Stop octreotide drip. Qualifiers: Esophageal varices type: unspecified type Esophageal varices bleeding: with bleeding Qualified Code(s): I85.01 - Esophageal varices with bleeding (3) Anemia Current Visit: Yes Status: Acute Assessment and plan: Hgb stable. Continue to monitor CBC and transfuse PRBC as needed. Qualifiers: Anemia type: unspecified type Qualified Code(s): D64.9 - Anemia, unspecified (4) Cirrhosis Current Visit: Yes Status: Acute Assessment and plan: MELD-NA 17, Child-Benjamin class B, DF 14.1. CT abdomen and pelvis that contrast showed evidence of thickened appearance of the cecum and ascending colon reflecting possible colitis, mild to moderate ascites, and slightly nodular appearance of the liver. AFP pending. Liver US showed cirrhosis and ascites, no liver mass. Lifestyle Changes: 1. Total abstinence from alcohol including social drinking. 2. No smoking 3. Gradual loss of weight 4. Drink at least 3 cups of coffee due to its antioxidant effects in the liver, it reduces risk of HCC and advance fibrosis 5. If needed, use less than 2 g/day of Tylenol (in divided doses). 6. Vaccination for Hep A, B, Pneumococcus if not already received and yearly influenza vaccination by PCP 7. Avoid NSAIDS as can cause kidney damage 8. Avoid benzodiazepines and other sedatives such as anti-histamines, narcotics etc. as can cause encephalopathy or confusion 9. Take a late carbohydrate meal supplement as it reduces glucose production from protein breakdown and thus improves nutrition. 10. In cirrhosis, statins are safe to use and also improve portal hypertension and decrease risk of HCC. 11. Screening: o Hepatocellular cancer screening: US of liver, and AFP every 6 months Qualifiers: Hepatic cirrhosis type: alcoholic cirrhosis Ascites presence: with ascites Qualified Code(s): K70.31 - Alcoholic cirrhosis of liver with ascites (5) Alcohol dependence Current Visit: Yes Status: Acute Qualifiers: Substance use status: in remission Qualified Code(s): F10.21 - Alcohol dependence, in remission (6) Colitis Current Visit: Yes Status: Acute Assessment and plan: C diff positive. IV Cipro and Flagyl stopped. Treatment for Cdiff started by primary team with ERINN Hernández. - Time Spent With Patient Total time spent is greater than 50% in coordination of care (as documented) at patient's floor/unit and/or counseling patient: - Subjective Interval history: Pt reports feeling well and is without acute complaint at this time. EGD completed yesterday. - Constitutional Vitals: Temp Pulse Resp BP Pulse Ox 97.8 F 86 16 117/73 96 11/08/17 07:31 11/08/17 07:31 11/08/17 07:31 11/08/17 07:31 11/08/17 07:31 General appearance: Present: cooperative, A&O X 3, no acute distress, answers questions appropriately - Head Head exam: Present: atraumatic, normocephalic - Eye Eye exam: Present: normal appearance, sclera anicteric - ENT ENT exam: Present: mucous membranes moist - Neck Neck exam general surgery: Present: normal inspection, trachea midline - Respiratory Respiratory exam: Present: CTAB. Absent: rales, rhonchi - Cardiovascular Cardiovascular exam: Present: RRR, +S1, +S2 - GI/Abdominal GI/Abdominal exam: Present: soft, no peritoneal signs. Absent: distended, firm , guarding, tenderness - Rectal Rectal exam: Present: deferred - Extremities Exam Extremities exam: Present: warm - Neurological Exam Neurological exam: Present: no focal deficits - Psychiatric Psychiatric exam: Present: normal affect, normal mood - Skin Skin exam: Present: dry, intact, normal color, warm Results - Labs CBC & Chem 7: 11/08/17 04:16 11/08/17 04:16 Labs: Last Result ESR 35 mm/hr (0-10) H 11/05/17 20:53 Calcium 8.3 mg/dL (8.6-10.3) L 11/08/17 04:16 Troponin I < 0.03 ng/mL (< 0.04) 11/06/17 09:19 C-Reactive Protein 27 mg/L (Less than 10) H 11/05/17 20:53 Entire Visit Hgb 10.6 g/dL (12.9-16.9) L 11/08/17 04:16 Hct 31.1 % (37.5-50.1) L 11/08/17 04:16 PT 13.1 Seconds (9.4-12.1) H 11/05/17 20:53 Total Bilirubin 2.6 mg/dL (0.3-1.0) H 11/06/17 05:26 AST 44 Units/L (13-39) H 11/06/17 05:26 ALT 15 Units/L (7-52) 11/06/17 05:26 Lipase 119 Units/L (11-82) H 11/05/17 20:53 - ABG ABG results: PT/INR, D-dimer PT 13.1 Seconds (9.4-12.1) H 11/05/17 20:53 - Impressions Impressions Liver Ultrasound 11/08/17 09:00 IMPRESSION: Cirrhosis and ascites. No liver mass. D/ / Donny Whitmore MD / Donny Whitmore MD Interpreting Provider: Donny Whitmore MD - VTE Documentation of Mechanical Device: Intermittent pneumatic compression device Consult Discharge Plan - Plan [facility]errals: [facility] [Primary Care Provider] - Elizabeth Hopkins [Family Provider] -
[2017-11-08] MEDS ORDERED: Insulin LISPRO 300 UNITS/3 ML VIAL SQ SCH (21:00)
[2017-11-08] MEDS: traZODone 50 MG TABLET PO SCH (22:17)
[2017-11-09 06:42] LABS: Basophils % 0.4 %; Eosinophils # 0.1 K/mcL (0.0-0.6); Eosinophils % 2.4 %; Hematocrit 30.1 % (37.5-50.1); Hemoglobin 9.9 g/dL (12.9-16.9); Immature Granulocytes % 0.6 % (0-4); Lymphocytes % 21.1 %; Mean Corpuscular HGB Conc 32.9 g/dL (31.6-35.5); Mean Corpuscular Hemoglobin 32.1 pg (28.0-33.3); Mean Corpuscular Volume 97.7 fL (83.0-100.0); Mean Platelet Volume 10.4 fL (9.4-12.4); Monocytes # 0.3 K/mcL (0.0-1.3); Monocytes % 6.3 %; Neutrophils # 3.4 K/mcL (1.6-8.9); Platelet Count 105 K/mcL (140-400); Red Blood Count 3.08 M/mcL (4.19-5.50); Red Cell Distribution Width 18.3 % (11.5-14.5); Segmented Neutrophils % 69.2 %
[2017-11-09 07:01] LABS: BUN/Creatinine Ratio 22 (6-26); Blood Urea Nitrogen 24 mg/dL (8-23); Calcium 8.2 mg/dL (8.6-10.3); Carbon Dioxide 19 mEq/L (23-29); Chloride 112 mEq/L (98-107); Glucose 111 mg/dL (70-105); Osmolality,Calculated 287 (280-300); Potassium 4.1 mEq/L (3.5-5.1); Sodium 136 mEq/L (136-145); eGFR For African Americans > 60 (> 60); eGFR For Non-African Americans > 60 (> 60)
[2017-11-09] MEDS: Insulin LISPRO 300 UNITS/3 ML VIAL SQ SCH ×2 (08:11→11:18)
[2017-11-09] MEDS: Thiamine (B-1) 100 MG TABLET PO SCH (09:30)
[2017-11-09] MEDS: Folic Acid 1 MG TABLET PO SCH (09:30)
[2017-11-09] MEDS: Lactobacillus 1 EACH CAP.SPRINK PO SCH (09:30)
[2017-11-09] MEDS: Cholecalciferol (D-3) 1,000 UNIT TABLET PO SCH (09:30)
[2017-11-09] MEDS: Vancomycin Oral Soln 125 MG/2.5 ML UDC PO SCH ×2 (09:31→11:47)
[2017-11-09 11:09] VITALS: BP 96/65
--- NOTE | 2017-11-09 12:36 | Physician Discharge Referral ---
Home Health/Hosp Referral Info Transfer to: Home Health Provider in Charge Post Discharge: PCP - Diagnosis (1) GI bleed Priority: Primary Status: Acute (2) Colitis Priority: Secondary Status: Acute (3) Elevated troponin Priority: Secondary Status: Acute (4) Acute blood loss anemia Priority: Secondary Status: Acute (5) Diabetes mellitus Priority: Secondary Status: Acute (6) Alcohol dependence Priority: Secondary Status: Acute (7) Depression Priority: Secondary Status: Acute (8) CHF (congestive heart failure) Priority: Secondary Status: Acute (9) Hypertension Priority: Secondary Status: Acute (10) DVT prophylaxis Priority: Secondary Status: Acute - Respiratory Orders Smoking Cessation: Smoking cessation has been advised. For more information, call the [employer] Tobacco Quit Line at 8-184-ZBSH-NOW. - Diet/Nutrition Diet/Nutrition: List: Diabetic diet - Services Needed Following services are medically necessary services: Physical Therapy, Occupational Therapy - Transfer Medications Home Medications: Allopurinol [Zyloprim 100 MG] 100 mg PO DAILY 11/05/17 [History] Aspirin [Adult Aspirin] 81 mg PO DAILY 11/05/17 [History] Cholecalciferol (Vitamin D3) [Vitamin D3] 1,000 mg PO DAILY 11/05/17 [History] Folic Acid [Folic Acid] 2 mg PO DAILY 11/05/17 [History] Hydrocortisone/Pramoxine [Proctofoam-Hc 1%-1% Foam] 1 appl RC BID PRN 11/05/17 [ History] Ibuprofen [Ibu] 600 mg PO QID 11/05/17 [History] Ketotifen Fumarate [Zaditor] 1 drop OP BID 11/05/17 [History] Lactobacillus Acidophilus [Acidophilus Lactobacillus] 1 cap PO DAILY 11/05/17 [ History] Lactulose [Lactulose] 30 ml PO TID 11/05/17 [History] Lisinopril-HCTZ 20-12.5 [Prinzide 20-12.5] 1 tab PO DAILY 11/05/17 [History] Metformin HCl [Metformin HCl] 1,000 mg PO BID 11/05/17 [History] Methyl Salicylate/Menthol [Muscle Rub Cream] 1 appl TP TID 11/05/17 [History] Nystatin POWDER [Nystop] 1 appl TP BID 11/05/17 [History] Omeprazole [PriLOSEC] 20 mg PO BID 11/05/17 [History] Propylene Glycol/Peg 400/Pf [Systane Ultra 0.4-0.3% Eye Drp] 1 drop OP DAILY 09/19 [History] Sertraline [Zoloft] 100 mg PO DAILY 11/05/17 [History] Thiamine HCl [Vitamin B-1] 100 mg PO DAILY 11/05/17 [History] Trazodone HCl 100 mg PO HS 11/05/17 [History] Allergies/Adverse Reactions: 3 Allergy/AdvReac Type Severity Reaction Status Date / Time No Known Allergies Allergy Verified 11/05/17 20:52 Certification: Further, I certify that my clinical findings support that this patient is homebound (i.e. absences from home require considerable and taxing effort and are for medical reasons or uatsdin services or infrequently or short duration when for other reasons) because: Homebound Reason: Patient requires assistance of a person or device to safely leave home, Leaving home requires considerable and taxing effort due to condition Attestation: My signature below is to certify that this patient is under my care and that I, or nurse practitioner, or a physician's tiler's assistant working with me, has a face-to -face encounter with this patient.
--- NOTE | 2017-11-09 12:39 | Discharge Summary ---
- NOTES TO OUTPATIENT PROVIDER Notes to Outpatient Provider: Follow-up CBC for hemoglobin. Follow-up with GI in office for rebanding varicies. Orders not resulted at time of discharge: Pending orders 11/07/17 15:52 AFP Tumor Marker Non- Routine 11/09/17 13:00 HH [Hemoglobin and Hematocrit] [HEME] Timed 11/10/17 04:00 BMP [Basic Metabolic Panel] AM 0400 Complete Blood Count [HEME] AM 0400 11/11/17 04:00 BMP [Basic Metabolic Panel] AM 0400 Complete Blood Count [HEME] AM 0400 Date of Encounter: 11/09/17 Time of Encounter: 12:37 - Discharge Diagnosis (1) GI bleed Priority: Primary Status: Acute Qualifiers: GI bleed type/associated pathology: unspecified gastrointestinal hemorrhage type Qualified Code(s): K92.2 - Gastrointestinal hemorrhage, unspecified (2) Colitis Priority: Secondary Status: Acute (3) Elevated troponin Priority: Secondary Status: Acute (4) Acute blood loss anemia Priority: Secondary Status: Acute (5) Diabetes mellitus Priority: Secondary Status: Acute Qualifiers: Diabetes mellitus type: type 2 Diabetes mellitus intermediate teacher insulin use: without intermediate teacher use Diabetes mellitus complication status: with neurologic complications Diabetes mellitus complication detail: with unspecified neuropathy Qualified Code(s): E11.40 - Type 2 diabetes mellitus with diabetic neuropathy, unspecified (6) Alcohol dependence Priority: Secondary Status: Acute Qualifiers: Substance use status: in remission Qualified Code(s): F10.21 - Alcohol dependence, in remission (7) Depression Priority: Secondary Status: Acute Qualifiers: Depression Type: unspecified Qualified Code(s): F32.9 - Major depressive disorder, single episode, unspecified (8) CHF (congestive heart failure) Priority: Secondary Status: Acute Qualifiers: Heart failure type: unspecified Heart failure chronicity: unspecified Qualified Code(s): I50.9 - Heart failure, unspecified (9) Hypertension Priority: Secondary Status: Acute Qualifiers: Hypertension type: essential hypertension Qualified Code(s): I10 - Essential (primary) hypertension (10) DVT prophylaxis Priority: Secondary Status: Acute Hospital course: Mr. Maldonado is a 72 year old male with history of alcoholic liver cirrhosis, cognitive dysfunction, diabetes mellitus, reported history of CHF, alcohol dependence who is in detox currently, hypertension, ROBER, peripheral neuropathy, who was sent from the [place] where he had laboratory workup that showed a hemoglobin of 7.9 with reported bloody stools. The patient has no previous labs in our system but the patient had labs sent with him from earlier this year with his hemoglobin being 12.3 back in September and has progressively been declining ever since. The patient has been a resident of the [place] for alcohol detox for the last 3 weeks or so. Upon presentation to us he was hypotensive. He received IV fluids and laboratory workup showed hemoglobin of 7.8. Rest of labs showed a troponins of 0.08. CT abdomen and pelvis that contrast showed evidence of thickened appearance of the cecum and ascending colon reflecting possible colitis. Patient tested positive for C diff and so started on oral vancomycin. Due to his known history, he was started on octreotide and Protonix drip. General Surgery and GI was consulted, H&H were trended and monitored. He needed overall 3 PRBC during this admission. Patient had an EGD that showed esophageal varicies and he banding done and eventually octreotide drip transitioned. He had liver ultrasound that showed cirrhosis and ascites, that is known history of patient, but no liver mass. He remained stable and tolerated diet. He was discharged home in stable condition. - Time Spent with Patient Total time spent providing and/or coordinating discharge services: - Discharge Medications Prescriptions: Vancomycin Oral Soln [Firvanq] 125 mg PO QID 7 Days #3500 mg Home Medications: Allopurinol [Zyloprim 100 MG] 100 mg PO DAILY 11/05/17 [History] Aspirin [Adult Aspirin] 81 mg PO DAILY 11/05/17 [History] Cholecalciferol (Vitamin D3) [Vitamin D3] 1,000 mg PO DAILY 11/05/17 [History] Folic Acid 2 mg PO DAILY 11/05/17 [History] Hydrocortisone/Pramoxine [Proctofoam-Hc 1%-1% Foam] 1 appl RC BID PRN 11/05/17 [ History] Ketotifen Fumarate [Zaditor] 1 drop OP BID 11/05/17 [History] Lactobacillus Acidophilus [Acidophilus Lactobacillus] 1 cap PO DAILY 11/05/17 [ History] Lactulose 30 ml PO TID 11/05/17 [History] Lisinopril-HCTZ 20-12.5 [Prinzide 20-12.5] 1 tab PO DAILY 11/05/17 [History] Metformin HCl 1,000 mg PO BID 11/05/17 [History] Methyl Salicylate/Menthol [Muscle Rub Cream] 1 appl TP TID 11/05/17 [History] Nystatin POWDER [Nystop] 1 appl TP BID 11/05/17 [History] Omeprazole [PriLOSEC] 20 mg PO BID 11/05/17 [History] Propylene Glycol/Peg 400/Pf [Systane Ultra 0.4-0.3% Eye Drp] 1 drop OP DAILY 09/19 [History] Sertraline [Zoloft] 100 mg PO DAILY 11/05/17 [History] Thiamine HCl [Vitamin B-1] 100 mg PO DAILY 11/05/17 [History] Trazodone HCl 100 mg PO HS 11/05/17 [History] Vancomycin Oral Soln [Firvanq] 125 mg PO QID 7 Days #3500 mg 11/09/17 [Rx] Allergies/Adverse Reactions: 3 Allergy/AdvReac Type Severity Reaction Status Date / Time No Known Allergies Allergy Verified 11/05/17 20:52 Date of admission: 11/06/17 01:17 [facility] care physician: [facility] Consults: 11/06/17 11:56 Consult to Gastroenterology [CONS] Routine Consulting Provider: Gastroenterology Elaine Reason for Consult: Black tarry stool x 2 months. Esophageal varices. Call Completed: No Discharging clinician: Leonel Rich - Constitutional Vitals: Temp Pulse Resp BP Pulse Ox 98.2 F 79 16 96/65 95 11/09/17 11:01 11/09/17 11:01 11/09/17 11:01 11/09/17 11:01 11/09/17 11:01 - Head Head exam: Present: atraumatic, normocephalic - Eye Eye exam: Present: PERRL, conjuntiva pink, sclera anicteric Pupils: Present: PERRL - Neck Neck exam general surgery: Present: supple, trachea midline. Absent: lymphadenopathy - Respiratory Respiratory exam: Present: CTAB. Absent: accessory muscle use, rales, rhonchi, wheezes - Cardiovascular Cardiovascular exam: Present: RRR, +S1, +S2. Absent: diastolic murmur, gallop, rubs, systolic murmur - GI/Abdominal GI/Abdominal exam: Present: normal bowel sounds, soft, no peritoneal signs. Absent: distended, tenderness - Extremities Exam Extremities exam: Present: warm, radial pulses palpable and symmetrical. Absent : calf tenderness, cyanotic, pedal edema - Neurological Exam Neurological exam: Present: CN II-XII intact, oriented X3, no focal deficits. Absent: pronater drift, facial droop, speech deficit - Skin Skin exam: Present: dry, intact - Patient Status Disposition: Home Health Service Condition: Undetermined Functional capacity at discharge: independent ambulation Overall status at discharge: patient is progressing back to baseline - Discharge Instructions Follow Up With: [facility] [Primary Care Provider[facility] - Elizabeth Hopkins [Family Provider] - - Diet and Activity Activity: as per physical therapy Diet: advance to your usual diet - VTE Documentation of Mechanical Device: Intermittent pneumatic compression device
[2017-11-09 12:46] LABS: Hematocrit 33.6 % (37.5-50.1); Hemoglobin 11.1 g/dL (12.9-16.9)
== END 2017-11-09 15:13 | disposition home health service (06) | DRG 432 ==
LOC: EMEROO 20:40 → ICNU 11-06 01:17 → 2ANU 11-07 14:30
PROVIDERS: ADMIT Internal Medicine; ATTEND Internal Medicine

== ENCOUNTER 2017-11-28 12:39 | Inpatient (IN) ==
[2017-11-28] MEDS ORDERED: Pantoprazole 40 MG VIAL IVP ONE (13:01)
--- NOTE | 2017-11-28 13:11 | Emergency Department Note ---
Disposition Clinical Impression: GI bleed Qualifiers: GI bleed type/associated pathology: unspecified gastrointestinal hemorrhage type Qualified Code(s): K92.2 - Gastrointestinal hemorrhage, unspecified Anemia Qualifiers: Anemia type: unspecified type Qualified Code(s): D64.9 - Anemia, unspecified Ascites Qualifiers: Ascites type: other type Qualified Code(s): R18.8 - Other ascites Disposition: Admitted As Inpatient Condition: Fair [facility] - Elizabeth Hopkins [Family Provider] - Forms: ED Satisfaction Letter Time of Disposition: 14:02 GI Bleed HPI - General Chief complaint: ED GI Bleed Stated complaint: GI bleed Time Seen by Provider: 11/28/17 13:01 Source: patient, EMS Mode of arrival: ambulatory Limitations: no limitations Nursing Notes Reviewed: Yes Vital Signs Reviewed: Yes - History of Present Illness HPI Narrative: 72-year-old male with a history of GI bleed, banding of esophageal varices, cirrhotic liver disease, CHF presents for evaluation from the [facility] due to concerns of a GI bleed. Patient states that he has been having bright red blood per rectum intermittently over a several day timeframe. [facility] states is been over 3 weeks. Patient was seen in the [facility] for a routine follow-up and was told to go to the ER given his acute drop in hemoglobin and his symptoms described. Patient denies any dark emesis or coffee -ground emesis. Patient does follow with [facility] Izquierdo and has an appointment scheduled next month. Patient denies any chest pain or shortness of breath. Patient does note some abdominal distention which has worsened. - Related Data Home Medications Medication Instructions Recorded Confirmed Allopurinol [Zyloprim 100 MG] 100 mg PO DAILY 11/05/17 11/28/17 Cholecalciferol (Vitamin D3) 1,000 mg PO DAILY 11/05/17 11/28/17 [Vitamin D3] Folic Acid 2 mg PO DAILY 11/05/17 11/28/17 Hydrocortisone/Pramoxine 1 appl RC BID PRN 11/05/17 11/28/17 [Proctofoam-Hc 1%-1% Foam] Ketotifen Fumarate [Zaditor] 1 drop OP BID 11/05/17 11/28/17 Lactobacillus Acidophilus 1 cap PO DAILY 11/05/17 11/28/17 [Acidophilus Lactobacillus] Lactulose 30 ml PO TID 11/05/17 11/28/17 Metformin HCl 1,000 mg PO BID 11/05/17 11/28/17 Omeprazole [PriLOSEC] 20 mg PO BID 11/05/17 11/28/17 Propylene Glycol/Peg 400/Pf 1 drop OP DAILY 11/05/17 11/28/17 [Systane Ultra 0.4-0.3% Eye Drp] Sertraline [Zoloft] 100 mg PO DAILY 11/05/17 11/28/17 Thiamine HCl [Vitamin B-1] 100 mg PO DAILY 11/05/17 11/28/17 Trazodone HCl 100 mg PO HS 11/05/17 11/28/17 Furosemide [Lasix] 20 mg PO DAILY 11/28/17 11/28/17 Spironolactone [Aldactone] 50 mg PO DAILY 11/28/17 11/28/17 Allergies Allergy/AdvReac Type Severity Reaction Status Date / Time No Known Allergies Allergy Verified 11/28/17 13:43 All systems ED: reviewed and negative except as stated. Constitutional: Denies: fever Cardiovascular: Denies: chest pain Respiratory: Denies: cough, dyspnea Gastrointestinal: Reports: hematochezia. Denies: abdominal pain, nausea, vomiting, hematemesis Past Medical History - Past Medical History Source: patient Medical history: Reports: cancer, cirrhosis, CHF, COPD, diabetes, liver disease Surgical history: Reports: no surgical history Psychiatric history: Reports: PTSD - Social History Smoking Status: Never smoker Smokeless Tobacco Status: No Alcohol use: Reports: none Drug use: Reports: none Physical Exam - General Limitations: no limitations General appearance: alert, in no apparent distress - Head Head exam: atraumatic, normocephalic, normal inspection - Eye Eye exam: Present: normal appearance, PERRL, EOMI - ENT ENT exam: normal exam, normal oropharynx, mucous membranes moist - Neck Neck exam: Present: normal inspection - Chest Chest inspection: Present: normal inspection, symmetric chest wall rise - Respiratory Respiratory exam: Present: normal lung sounds bilaterally. Absent: respiratory distress - Cardiovascular Cardiovascular exam: Present: regular rate, normal rhythm. Absent: systolic murmur - Abdominal Exam Abdominal exam: Present: soft, Non-Tender, distention. Absent: guarding, rebound, tenderness at McBurney's Point - Extremities Exam Extremities exam: Present: normal inspection. Absent: pedal edema - Back Exam Back exam: Present: normal inspection - Neurological Exam Neurological exam: Present: alert, oriented X3, CN II-XII intact - Skin Skin exam: Present: warm, dry, intact, normal color Course Course Narrative: Patient seen and examined. Patient's hemodynamically stable. Patient's records reviewed from the [facility] shows he had a CT which showed moderate to large amount of intra-abdominal ascites. Patient also had a chest x-ray showed left basilar consolidation with small effusion. Patient clinically does not present with signs of pneumonia. Patient's hemoglobin was 9.8. Patient's platelets are 171 INR is 1.1. Patient will get repeat labs consult with GI as well as inpatient admission for symptom resolution and monitoring. - Consultations Consultation #1: Spoke with GI who states that the patient will likely do an upper endoscopy tomorrow. Recommend clear liquids today nothing by mouth at midnight. Time: 13:26 Vital Signs Temperature 97.6 F 11/28/17 12:42 Pulse Rate 73 11/28/17 12:42 Respiratory Rate 18 11/28/17 12:42 Blood Pressure 120/74 11/28/17 12:42 O2 Sat by Pulse Oximetry 99 11/28/17 12:42 Temperature 97.6 F 11/28/17 12:42 Pulse Rate 63 11/28/17 13:31 Respiratory Rate 18 11/28/17 13:31 Blood Pressure 115/71 11/28/17 13:31 O2 Sat by Pulse Oximetry 96 11/28/17 13:31 Oxygen Delivery Oxygen Delivery Room Air GI Bleed - [facility] Narrative Medical decision making narrative: Patient has a history about colic liver disease status post banding in the past. Patient presented from the [facility] for concerns of GI bleed. Patient does have an acute drop in hemoglobin. Patient symptomatic. Patient also has been noted have bright red blood per rectum. Patient had occult positive stools. Patient case was discussed with GI who recommends EGD tomorrow. Patient does not require immediate transfusion. Patient also has moderate to large abdominal ascites. The patient is not peritoneal. Do not feel it is an emergent procedure for drainage of the ascites currently in the ED. Patient will be admitted to the hospital service for further evaluation managing of the patient's GI. Patient's chest x-ray obtained at the [facility] also showed effusion with possible infiltrate have the patient does not require oxygen clinically does not have pneumonia. Patient was not started on antibiotics. Patient was given Protonix. - Lab Data Lab results reviewed: Yes I reviewed the patient's lab results. Result diagrams: 11/28/17 13:09 11/28/17 13:09 Lab Results 11/28/17 11/28/17 11/28/17 Range/Units 13:09 13:09 13:09 WBC 8.3 (4.3-11.1) K/mcL RBC 3.13 L (4.19-5.50) M/mcL Hgb 10.5 L (12.9-16.9) g/dL Hct 31.7 L (37.5-50.1) % MCV 101.3 H (83.0-100.0) fL MCH 33.5 H (28.0-33.3) pg MCHC 33.1 (31.6-35.5) g/dL RDW 16.4 H (11.5-14.5) % Plt Count 160 (140-400) K/mcL MPV 10.6 (9.4-12.4) fL Immature Gran % 0.5 (0-4) % Seg Neutrophils % 73.4 % Lymphocytes % 17.8 % Monocytes % 6.5 % Eosinophils % 1.4 % Basophils % 0.4 % Neutrophils # 6.1 (1.6-8.9) K/mcL Lymphocytes # 1.5 (0.6-4.6) K/mcL Monocytes # 0.5 (0.0-1.3) K/mcL Eosinophils # 0.1 (0.0-0.6) K/mcL Basophils # 0.0 (0.0-0.2) K/mcL PT 13.9 H (9.4-12.1) Seconds INR 1.3 Sodium 138 (136-145) mEq/L Potassium 5.0 (3.5-5.1) mEq/L Chloride 109 H (98-107) mEq/L Carbon Dioxide 22 L (23-29) mEq/L BUN 20 (8-23) mg/dL Creatinine 0.85 (0.70-1.30) mg/dL Est GFR ( Amer) > 60 (> 60) Est GFR (Non-Af Amer) > 60 (> 60) BUN/Creatinine Ratio 24 (6-26) Glucose 81 (70-105) mg/dL Calculated Osmolality 288 (280-300) Calcium 9.1 (8.6-10.3) mg/dL Total Bilirubin 1.9 H (0.3-1.0) mg/dL AST 46 H (13-39) Units/L ALT 15 (7-52) Units/L Alkaline Phosphatase 165 H (34-104) Units/L Serum Total Protein 7.2 (6.4-8.9) g/dL Albumin 3.3 L (3.5-5.7) g/dL Globulin 3.9 H (2.4-3.5) g/dL Albumin/Globulin Ratio 0.8 L (1.1-2.2) Stool Occult Bld Scrn (Negative) Blood Type Antibody Screen 11/28/17 11/28/17 Range/Units 13:09 Unknown WBC (4.3-11.1) K/mcL RBC (4.19-5.50) M/mcL Hgb (12.9-16.9) g/dL Hct (37.5-50.1) % MCV (83.0-100.0) fL MCH (28.0-33.3) pg MCHC (31.6-35.5) g/dL RDW (11.5-14.5) % Plt Count (140-400) K/mcL MPV (9.4-12.4) fL Immature Gran % (0-4) % Seg Neutrophils % % Lymphocytes % % Monocytes % % Eosinophils % % Basophils % % Neutrophils # (1.6-8.9) K/mcL Lymphocytes # (0.6-4.6) K/mcL Monocytes # (0.0-1.3) K/mcL Eosinophils # (0.0-0.6) K/mcL Basophils # (0.0-0.2) K/mcL PT (9.4-12.1) Seconds INR Sodium (136-145) mEq/L Potassium (3.5-5.1) mEq/L Chloride (98-107) mEq/L Carbon Dioxide (23-29) mEq/L BUN (8-23) mg/dL Creatinine (0.70-1.30) mg/dL Est GFR ( Amer) (> 60) Est GFR (Non-Af Amer) (> 60) BUN/Creatinine Ratio (6-26) Glucose (70-105) mg/dL Calculated Osmolality (280-300) Calcium (8.6-10.3) mg/dL Total Bilirubin (0.3-1.0) mg/dL AST (13-39) Units/L ALT (7-52) Units/L Alkaline Phosphatase (34-104) Units/L Serum Total Protein (6.4-8.9) g/dL Albumin (3.5-5.7) g/dL Globulin (2.4-3.5) g/dL Albumin/Globulin Ratio (1.1-2.2) Stool Occult Bld Scrn Positive A (Negative) Blood Type A POSITIVE Antibody Screen NEGATIVE - Radiology Data Radiology results reviewed: Yes I reviewed the patient's radiology results. Reviewed CT [facility] - EKG Data EKG attestation: Yes I reviewed and interpreted this EKG. EKG shows normal: sinus rhythm Rate: normal Rhythm: NSR [place]/QRS: normal, RBBB Ectopy: PAC Interpretation: no acute changes, nonspecific ST-T wave changes S.B.ALeland - S.Raffi.Ray Situation: Demographics Background: Presenting Complaint Assessment: Vital Signs, Patient/Family Expectation Recommendation: Barrier(s) to disposition, Recommendation based on pending studies, treatments, or consults S.B.A.Sunil Report Given to: Dr. Yary Orozco Repor Time: 13:59
[2017-11-28 13:22] LABS: Basophils % 0.4 %; Eosinophils # 0.1 K/mcL (0.0-0.6); Eosinophils % 1.4 %; Hematocrit 31.7 % (37.5-50.1); Hemoglobin 10.5 g/dL (12.9-16.9); Immature Granulocytes % 0.5 % (0-4); Lymphocytes # 1.5 K/mcL (0.6-4.6); Lymphocytes % 17.8 %; Mean Corpuscular HGB Conc 33.1 g/dL (31.6-35.5); Mean Corpuscular Hemoglobin 33.5 pg (28.0-33.3); Mean Corpuscular Volume 101.3 fL (83.0-100.0); Mean Platelet Volume 10.6 fL (9.4-12.4); Monocytes # 0.5 K/mcL (0.0-1.3); Monocytes % 6.5 %; Neutrophils # 6.1 K/mcL (1.6-8.9); Platelet Count 160 K/mcL (140-400); Red Blood Count 3.13 M/mcL (4.19-5.50); Red Cell Distribution Width 16.4 % (11.5-14.5); Segmented Neutrophils % 73.4 %
[2017-11-28 13:35] LABS: INR 1.3; Prothrombin Time 13.9 Seconds (9.4-12.1)
[2017-11-28 13:49] LABS: Alanine Aminotransferase 15 Units/L (7-52); Albumin 3.3 g/dL (3.5-5.7); Albumin/Globulin Ratio 0.8 (1.1-2.2); Alkaline Phosphatase 165 Units/L (34-104); Aspartate Amino Transferase 46 Units/L (13-39); BUN/Creatinine Ratio 24 (6-26); Bilirubin,Total 1.9 mg/dL (0.3-1.0); Blood Urea Nitrogen 20 mg/dL (8-23); Calcium 9.1 mg/dL (8.6-10.3); Carbon Dioxide 22 mEq/L (23-29); Chloride 109 mEq/L (98-107); Globulin 3.9 g/dL (2.4-3.5); Glucose 81 mg/dL (70-105); Osmolality,Calculated 288 (280-300); Sodium 138 mEq/L (136-145); Total Protein 7.2 g/dL (6.4-8.9); eGFR For African Americans > 60 (> 60); eGFR For Non-African Americans > 60 (> 60)
[2017-11-28] MEDS ORDERED: Naloxone 0.4 MG/ML INJ IVP PRN (14:28)
--- NOTE | 2017-11-28 15:22 | Internal Med History&Physical ---
Date of Encounter: 11/28/17 Time of Encounter: 15:00 Internal Medicine - H&P: HPI Chief complaint: Bright red bleeding per rectum Admitted From: Emergency Dept Plans for Post Hospital Care: Home History of present illness: Mr. Maldonado is a 72 year old male patient with history of alcoholic liver cirrhosis with esophageal varices status post banding recently presented to the ER with complaints of bright red bleeding per rectum. He does have a history of hemorrhoids and he believes that the bleeding was from the hemorrhoids. He denies any dizziness or lightheadedness. No nausea or vomiting. No hematemesis. No chest pain or palpitations. He was hospitalized here earlier this month. He had GI bleed then. Underwent upper GI endoscopy and was found to have multiple esophageal varices which were eradicated and banded. His symptoms seemed to have subsided done. His [facility]. He was also diagnosed with cirrhosis at bedtime. His been placed on diuretics at that time. He has noticed increased abdominal distention. He also had C. difficile and was treated with oral vancomycin. Past Med Surg Social Fam HX - Past Medical History Attestation: Yes The following information was validated with the patient. Source: patient Medical history: cancer, cirrhosis, CHF, COPD, diabetes, liver disease Additional medical history: PROSTATE CANCER Psychiatric history: PTSD - Past Surgical History Surgical History: no surgical history Additional surgical history: KIDNEY STONES - Social History Smoking Status: Never smoker Smokeless Tobacco Status: No Alcohol use: none Drug use: none Internal Medicine - H&P: Meds Allopurinol [Zyloprim 100 MG] 100 mg PO DAILY 11/05/17 [History] Cholecalciferol (Vitamin D3) [Vitamin D3] 1,000 mg PO DAILY 11/05/17 [History] Folic Acid 2 mg PO DAILY 11/05/17 [History] Hydrocortisone/Pramoxine [Proctofoam-Hc 1%-1% Foam] 1 appl RC BID PRN 11/05/17 [ History] Ketotifen Fumarate [Zaditor] 1 drop OP BID 11/05/17 [History] Lactobacillus Acidophilus [Acidophilus Lactobacillus] 1 cap PO DAILY 11/05/17 [ History] Lactulose 30 ml PO TID 11/05/17 [History] Metformin HCl 1,000 mg PO BID 11/05/17 [History] Omeprazole [PriLOSEC] 20 mg PO BID 11/05/17 [History] Propylene Glycol/Peg 400/Pf [Systane Ultra 0.4-0.3% Eye Drp] 1 drop OP DAILY 09/19 [History] Sertraline [Zoloft] 100 mg PO DAILY 11/05/17 [History] Thiamine HCl [Vitamin B-1] 100 mg PO DAILY 11/05/17 [History] Trazodone HCl 100 mg PO HS 11/05/17 [History] Furosemide [Lasix] 20 mg PO DAILY 11/28/17 [History] Spironolactone [Aldactone] 50 mg PO DAILY 11/28/17 [History] 3 Allergy/AdvReac Type Severity Reaction Status Date / Time No Known Allergies Allergy Verified 11/28/17 13:43 All Systems PM: A 10-system review of systems was performed and is negative for pertinent findings except as documented above in the HPI. - Constitutional Constitutional: no chills, no fever(s), no night sweats - EENT Eyes: no change in vision, no discharge, no pain, no photophobia Ears: no ear discharge, no ear pain, no tinnitus Nose, mouth and throat: no dysphagia, no nasal discharge, no neck pain, no sore throat - Cardiovascular Cardiovascular ROS IM: no chest pain, no diaphoresis, no dyspnea, no lightheadedness, no palpitations, no syncope - Respiratory Respiratory: no cough, no dyspnea, no wheezing, no excessive phlegm production - Gastrointestinal Gastrointestinal: hematochezia - Musculoskeletal Musculoskeletal ROS IM: no numbness, no tingling - Integumentary Integumentary IM: no rash, no unusual bruising - Neurological Neurological ROS: no confusion, no convulsions, no focal weakness, no numbness, no tingling, no tremor(s) - Constitutional Vitals: Temp Pulse Resp BP Pulse Ox 97.6 F 69 18 106/68 95 11/28/17 12:42 11/28/17 14:37 11/28/17 14:37 11/28/17 14:37 11/28/17 14:37 General appearance: Present: cooperative, A&O X 3, answers questions appropriately - Respiratory Respiratory exam: Present: CTAB. Absent: accessory muscle use, rales, rhonchi, wheezes - Cardiovascular Cardiovascular exam: Present: RRR, +S1, +S2. Absent: diastolic murmur, gallop, rubs, systolic murmur - GI/Abdominal GI/Abdominal exam: Present: distended, normal bowel sounds, soft, no peritoneal signs. Absent: tenderness Additional comments: Ascites present - Extremities Exam Extremities exam: Present: warm, radial pulses palpable and symmetrical. Absent : calf tenderness, cyanotic, pedal edema - Neurological Exam Neurological exam: Present: CN II-XII intact, oriented X3, no focal deficits. Absent: facial droop, speech deficit Internal Med - H&P Results - Labs CBC & Chem 7: 11/28/17 13:09 11/28/17 13:09 - Assessment and plan (1) GI bleed Current Visit: Yes Status: Acute Assessment and plan: Patient with lower GI bleed. Most likely hemorrhoidal. Consulted GI. Given patient's recent banding, they recommend upper GI endoscopy to evaluate viruses. We will monitor blood counts closely. Keep patient on PPI. Qualifiers: GI bleed type/associated pathology: anorectal hemorrhage Qualified Code(s) : K62.5 - Hemorrhage of anus and rectum (2) Anemia Current Visit: Yes Status: Chronic Assessment and plan: Hemoglobin level at 10.5. We will monitor closely. Qualifiers: Anemia type: unspecified type Qualified Code(s): D64.9 - Anemia, unspecified (3) Ascites Current Visit: Yes Status: Acute Assessment and plan: Will consult IR for paracentesis. Keep patient nothing by mouth after midnight. No signs of peritonitis Qualifiers: Ascites type: due to alcoholic cirrhosis Qualified Code(s): R18.8 - Other ascites (4) Cirrhosis Current Visit: Yes Status: Chronic Assessment and plan: Continue home medications including Lasix and spironolactone. Given portal hypertension, will also place patient on nadolol. Qualifiers: Hepatic cirrhosis type: alcoholic cirrhosis Ascites presence: with ascites Qualified Code(s): K70.31 - Alcoholic cirrhosis of liver with ascites (5) Diabetes mellitus Current Visit: Yes Status: Chronic Assessment and plan: Monitor blood sugars. Sliding scale insulin and diabetic diet. 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 Qualifiers: Hypertension type: essential hypertension Qualified Code(s): I10 - Essential (primary) hypertension (7) Esophageal varices Current Visit: Yes Status: Chronic Assessment and plan: Status post recent banding. Lung for upper GI endoscopy tomorrow. Continue PPI. Treat underlying portal hypertension. Qualifiers: Esophageal varices type: secondary Esophageal varices bleeding: with bleeding Qualified Code(s): I85.11 - Secondary esophageal varices with bleeding - Time Spent With Patient Total time spent is greater than 50% in coordination of care (as documented) at patient's floor/unit and/or counseling patient:
--- NOTE | 2017-11-28 16:59 | Emergency Department Note ---
Disposition Clinical Impression: GI bleed Qualifiers: GI bleed type/associated pathology: anorectal hemorrhage Qualified Code(s): K62.5 - Hemorrhage of anus and rectum Anemia Qualifiers: Anemia type: unspecified type Qualified Code(s): D64.9 - Anemia, unspecified Ascites Qualifiers: Ascites type: due to alcoholic cirrhosis Qualified Code(s): R18.8 - Other ascites Disposition: Admitted As Inpatient Condition: Fair General Adult HPI - General Chief complaint: ED GI Bleed Stated complaint: GI bleed Time Seen by Provider: 11/28/17 13:01 Source: patient, EMS Mode of arrival: ambulatory Limitations: no limitations - History of Present Illness Pain Scale: 0 - Related Data Home Medications Medication Instructions Recorded Confirmed Allopurinol [Zyloprim 100 MG] 100 mg PO DAILY 11/05/17 11/28/17 Cholecalciferol (Vitamin D3) 1,000 mg PO DAILY 11/05/17 11/28/17 [Vitamin D3] Folic Acid 2 mg PO DAILY 11/05/17 11/28/17 Hydrocortisone/Pramoxine 1 appl RC BID PRN 11/05/17 11/28/17 [Proctofoam-Hc 1%-1% Foam] Ketotifen Fumarate [Zaditor] 1 drop OP BID 11/05/17 11/28/17 Lactobacillus Acidophilus 1 cap PO DAILY 11/05/17 11/28/17 [Acidophilus Lactobacillus] Lactulose 30 ml PO TID 11/05/17 11/28/17 Metformin HCl 1,000 mg PO BID 11/05/17 11/28/17 Omeprazole [PriLOSEC] 20 mg PO BID 11/05/17 11/28/17 Propylene Glycol/Peg 400/Pf 1 drop OP DAILY 11/05/17 11/28/17 [Systane Ultra 0.4-0.3% Eye Drp] Sertraline [Zoloft] 100 mg PO DAILY 11/05/17 11/28/17 Thiamine HCl [Vitamin B-1] 100 mg PO DAILY 11/05/17 11/28/17 Trazodone HCl 100 mg PO HS 11/05/17 11/28/17 Furosemide [Lasix] 20 mg PO DAILY 11/28/17 11/28/17 Spironolactone [Aldactone] 50 mg PO DAILY 11/28/17 11/28/17 Allergies Allergy/AdvReac Type Severity Reaction Status Date / Time No Known Allergies Allergy Verified 11/28/17 13:43 Constitutional: Denies: fever Cardiovascular: Denies: chest pain Respiratory: Denies: cough, dyspnea Gastrointestinal: Reports: hematochezia. Denies: abdominal pain, nausea, vomiting, hematemesis Past Medical History - Past Medical History Medical history: Reports: cancer, cirrhosis, CHF, COPD, diabetes, liver disease Surgical history: Reports: no surgical history Psychiatric history: Reports: PTSD - Social History Smoking Status: Never smoker Smokeless Tobacco Status: No Alcohol use: Reports: none Drug use: Reports: none Physical Exam - General Limitations: no limitations General appearance: alert, in no apparent distress Course Vital Signs Temperature 97.6 F 11/28/17 12:42 Pulse Rate 73 11/28/17 12:42 Respiratory Rate 18 11/28/17 12:42 Blood Pressure 120/74 11/28/17 12:42 O2 Sat by Pulse Oximetry 99 11/28/17 12:42 Temperature 97.9 F 11/28/17 16:03 Pulse Rate 71 11/28/17 16:03 Respiratory Rate 14 11/28/17 16:03 Blood Pressure 116/74 11/28/17 16:03 O2 Sat by Pulse Oximetry 98 11/28/17 16:03 Oxygen Delivery Oxygen Delivery Room Air Medical Decision Making - Lab Data Result diagrams: 11/28/17 13:09 11/28/17 13:09 Lab Results 11/28/17 11/28/17 11/28/17 Range/Units 13:09 13:09 13:09 WBC 8.3 (4.3-11.1) K/mcL RBC 3.13 L (4.19-5.50) M/mcL Hgb 10.5 L (12.9-16.9) g/dL Hct 31.7 L (37.5-50.1) % MCV 101.3 H (83.0-100.0) fL MCH 33.5 H (28.0-33.3) pg MCHC 33.1 (31.6-35.5) g/dL RDW 16.4 H (11.5-14.5) % Plt Count 160 (140-400) K/mcL MPV 10.6 (9.4-12.4) fL Immature Gran % 0.5 (0-4) % Seg Neutrophils % 73.4 % Lymphocytes % 17.8 % Monocytes % 6.5 % Eosinophils % 1.4 % Basophils % 0.4 % Neutrophils # 6.1 (1.6-8.9) K/mcL Lymphocytes # 1.5 (0.6-4.6) K/mcL Monocytes # 0.5 (0.0-1.3) K/mcL Eosinophils # 0.1 (0.0-0.6) K/mcL Basophils # 0.0 (0.0-0.2) K/mcL PT 13.9 H (9.4-12.1) Seconds INR 1.3 Sodium 138 (136-145) mEq/L Potassium 5.0 (3.5-5.1) mEq/L Chloride 109 H (98-107) mEq/L Carbon Dioxide 22 L (23-29) mEq/L BUN 20 (8-23) mg/dL Creatinine 0.85 (0.70-1.30) mg/dL Est GFR ( Amer) > 60 (> 60) Est GFR (Non-Af Amer) > 60 (> 60) BUN/Creatinine Ratio 24 (6-26) Glucose 81 (70-105) mg/dL Calculated Osmolality 288 (280-300) Calcium 9.1 (8.6-10.3) mg/dL Total Bilirubin 1.9 H (0.3-1.0) mg/dL AST 46 H (13-39) Units/L ALT 15 (7-52) Units/L Alkaline Phosphatase 165 H (34-104) Units/L Serum Total Protein 7.2 (6.4-8.9) g/dL Albumin 3.3 L (3.5-5.7) g/dL Globulin 3.9 H (2.4-3.5) g/dL Albumin/Globulin Ratio 0.8 L (1.1-2.2) Blood Type Antibody Screen 11/28/17 Range/Units 13:09 WBC (4.3-11.1) K/mcL RBC (4.19-5.50) M/mcL Hgb (12.9-16.9) g/dL Hct (37.5-50.1) % MCV (83.0-100.0) fL MCH (28.0-33.3) pg MCHC (31.6-35.5) g/dL RDW (11.5-14.5) % Plt Count (140-400) K/mcL MPV (9.4-12.4) fL Immature Gran % (0-4) % Seg Neutrophils % % Lymphocytes % % Monocytes % % Eosinophils % % Basophils % % Neutrophils # (1.6-8.9) K/mcL Lymphocytes # (0.6-4.6) K/mcL Monocytes # (0.0-1.3) K/mcL Eosinophils # (0.0-0.6) K/mcL Basophils # (0.0-0.2) K/mcL PT (9.4-12.1) Seconds INR Sodium (136-145) mEq/L Potassium (3.5-5.1) mEq/L Chloride (98-107) mEq/L Carbon Dioxide (23-29) mEq/L BUN (8-23) mg/dL Creatinine (0.70-1.30) mg/dL Est GFR ( Amer) (> 60) Est GFR (Non-Af Amer) (> 60) BUN/Creatinine Ratio (6-26) Glucose (70-105) mg/dL Calculated Osmolality (280-300) Calcium (8.6-10.3) mg/dL Total Bilirubin (0.3-1.0) mg/dL AST (13-39) Units/L ALT (7-52) Units/L Alkaline Phosphatase (34-104) Units/L Serum Total Protein (6.4-8.9) g/dL Albumin (3.5-5.7) g/dL Globulin (2.4-3.5) g/dL Albumin/Globulin Ratio (1.1-2.2) Blood Type A POSITIVE Antibody Screen NEGATIVE Attestation Statement - Attestation Attestation: I examined this patient and my medical decision-making was reviewed with the Resident Physician. I agree with the documented findings, disposition and treatment plan as described except to the extent set forth below. Patient sent from [facility] with 2 g drop in hemoglobin over the last couple of weeks, rectal bleeding, ascites secondary to alcoholic cirrhosis. Hemodynamically stable in the emergency department. Treatment initiated, GI has evaluated the patient and will scope tomorrow. They also plan for paracentesis after the scope was completed. Admitted in stable condition.
[2017-11-28] MEDS: Pantoprazole 40 MG VIAL IVP SCH (17:46)
[2017-11-28 18:58] LABS: Hematocrit 27.5 % (37.5-50.1); Hemoglobin 9.2 g/dL (12.9-16.9)
[2017-11-28] MEDS: Lactulose Oral Soln 20 GM/30 ML UDC PO SCH (20:25)
[2017-11-28] MEDS: traZODone 50 MG TABLET PO SCH (20:25)
[2017-11-28] MEDS: (Ketotifen Fumarate [Zaditor] 1 DROP) OP SCH (20:26)
[2017-11-29 03:20] LABS: Basophils % 0.5 %; Eosinophils # 0.1 K/mcL (0.0-0.6); Eosinophils % 1.6 %; Hematocrit 25.1 % (37.5-50.1); Hemoglobin 8.4 g/dL (12.9-16.9); Immature Granulocytes % 0.5 % (0-4); Lymphocytes % 23.7 %; Mean Corpuscular HGB Conc 33.5 g/dL (31.6-35.5); Mean Corpuscular Hemoglobin 33.5 pg (28.0-33.3); Mean Platelet Volume 11.1 fL (9.4-12.4); Monocytes # 0.3 K/mcL (0.0-1.3); Monocytes % 7.7 %; Neutrophils # 2.9 K/mcL (1.6-8.9); Platelet Count 122 K/mcL (140-400); Red Blood Count 2.51 M/mcL (4.19-5.50); Red Cell Distribution Width 16.2 % (11.5-14.5)
[2017-11-29 03:38] LABS: BUN/Creatinine Ratio 23 (6-26); Blood Urea Nitrogen 19 mg/dL (8-23); Calcium 8.6 mg/dL (8.6-10.3); Carbon Dioxide 22 mEq/L (23-29); Chloride 111 mEq/L (98-107); Glucose 79 mg/dL (70-105); Osmolality,Calculated 289 (280-300); Potassium 3.9 mEq/L (3.5-5.1); Sodium 139 mEq/L (136-145); eGFR For African Americans > 60 (> 60); eGFR For Non-African Americans > 60 (> 60)
[2017-11-29] MEDS: Pantoprazole 40 MG VIAL IVP SCH ×2 (05:48→17:04)
[2017-11-29] MEDS: Spironolactone 25 MG TABLET PO SCH (10:04)
[2017-11-29] MEDS: Artificial Tears SOLN 15 ML BOTTLE OP SCH (10:04)
[2017-11-29] MEDS: Furosemide 20 MG TABLET PO SCH (10:05)
[2017-11-29] MEDS: Lactulose Oral Soln 20 GM/30 ML UDC PO SCH ×3 (10:05→20:31)
[2017-11-29] MEDS: Cholecalciferol (D-3) 1,000 UNIT TABLET PO SCH (10:05)
[2017-11-29] MEDS: Thiamine (B-1) 100 MG TABLET PO SCH (10:05)
[2017-11-29] MEDS: (Ketotifen Fumarate [Zaditor] 1 DROP) OP SCH (10:05)
[2017-11-29] MEDS: Folic Acid 1 MG TABLET PO SCH (10:05)
[2017-11-29] MEDS: Lactobacillus 1 EACH CAP.SPRINK PO SCH (10:05)
--- NOTE | 2017-11-29 10:26 | Gastroenterology Consult Note ---
Date of Encounter: 11/29/17 Time of Encounter: 09:10 - Assessment and plan (1) GI bleed Current Visit: Yes Status: Acute Assessment and plan: Pt has a history of esophageal varices and cirrhosis. He presents with dark red blood that turned bright red. Will proceed with EGD and colonoscopy tomorrow. Qualifiers: GI bleed type/associated pathology: anorectal hemorrhage Qualified Code(s) : K62.5 - Hemorrhage of anus and rectum (2) Esophageal varices Current Visit: Yes Status: Chronic Assessment and plan: Recent banding, will repeat EGD to check for bleeding. Monitor H&H, transfuse as needed. Qualifiers: Esophageal varices type: secondary Esophageal varices bleeding: with bleeding Qualified Code(s): I85.11 - Secondary esophageal varices with bleeding (3) Ascites Current Visit: Yes Status: Acute Qualifiers: Ascites type: due to alcoholic cirrhosis Qualified Code(s): R18.8 - Other ascites - Time Spent With Patient Total time spent is greater than 50% in coordination of care (as documented) at patient's floor/unit and/or counseling patient: GI History of Present Illness - Data of Consult Patient: known to practice within the last 3 years Consult date: 11/29/17 Requesting Physician: Naldo Kendrick DO - Consult Narrative Reason for consult: rectal bleeding History of present illness: Mr. Maldonado is a 72 year old male patient with history of alcoholic liver cirrhosis with esophageal varices status post banding earlier this month. He has a history of heavy alcohol consumption but has been sober for approximately 4 months. He presented to the ER with complaints of bright red bleeding per rectum. He states it started out dark red then turned bright red. He denies any dizziness or lightheadedness. No nausea or vomiting. No hematemesis. No chest pain or palpitations. [facility] He has noticed increased abdominal distention despite being on diuretics at home. He also had C. difficile and was treated with oral vancomycin. EGD 11/1918 Grade III esophageal varices banded asa/blood thinners: denies NSAIDS: denies Past Med Surg Social Fam HX - Past Medical History Medical history: cancer, cirrhosis, CHF, COPD, diabetes, liver disease Additional medical history: PROSTATE CANCER Psychiatric history: PTSD - Past Surgical History Surgical History: no surgical history Additional surgical history: KIDNEY STONES - Social History Smoking Status: Never smoker Smokeless Tobacco Status: No Alcohol use: none Drug use: none Review of Systems: GI: as per [place] GENERAL: denies fever, or chills EYES: denies yellow discoloration ENT: denies pain with swallowing or difficulty swallowing CARDIO: denies chest pain, palpitations RESP: Shortness of breath with exertion : denies change in color of urine NEURO: weakness HEME: Denies any bruising MS: denies joint pain, joint swelling or back pain. DERM: denies rash or itching PSYCH: history of anxiety and depression - Constitutional Vitals: Temp Pulse Resp BP Pulse Ox 97.9 F 82 15 117/74 96 11/29/17 10:13 11/29/17 10:13 11/29/17 10:13 11/29/17 10:13 11/29/17 10:13 Exam: CONSTITUTIONAL:~alert, no acute distress.~HEAD:~normocephalic.~EYES:~no jaundice.~NECK:~no obvious swelling.~HEART:~regular rate and rhythm, no murmurs. ~LUNGS:~bilateral good air entry.~ABDOMEN:~ distended, ascites noted, soft, non tender, no masses palpable, no organomegaly.~RECTAL EXAM:~Deferred.~EXTREMITIES: ~no clubbing, cyanosis, 1+ BLE edema.~SKIN:~pallor noted, no stigmata of chronic liver disease.~NEUROLOGIC:~no obvious focal defect.~~~~ Results - Labs CBC & Chem 7: 11/29/17 00:49 11/29/17 00:49 Labs: Last Result Calcium 8.6 mg/dL (8.6-10.3) 11/29/17 00:49 Entire Visit Hgb 8.4 g/dL (12.9-16.9) L 11/29/17 00:49 Hct 25.1 % (37.5-50.1) L 11/29/17 00:49 PT 13.9 Seconds (9.4-12.1) H 11/28/17 13:09 Total Bilirubin 1.9 mg/dL (0.3-1.0) H 11/28/17 13:09 AST 46 Units/L (13-39) H 11/28/17 13:09 ALT 15 Units/L (7-52) 11/28/17 13:09 - ABG ABG results: PT/INR, D-dimer PT 13.9 Seconds (9.4-12.1) H 11/28/17 13:09 Consult Discharge Plan - Plan Referrals: [facility] [Outside] - 12/06/17 11:00 am
[2017-11-29] MEDS ORDERED: *HR* Propofol 200 MG/20 ML VIAL IVP ONE (10:45)
[2017-11-29] MEDS ORDERED: Propofol 500 MG/50 ML INFUS..BTL ONE (10:45)
--- NOTE | 2017-11-29 12:41 | Procedure Note ---
Date of procedure: 11/29/17 Pre-op diagnosis: Ascites Post-op diagnosis: same Procedure: Date: 11/29/17 Time: 12:15 Indication: Ascites Resident: Sathish Chaidez Attending: Perry Knox A time-out was completed verifying correct patient, procedure, site, positioning , and special equipment if applicable. The patients right side was prepped and draped in a sterile manner after the appropriate infiltration level was confirmed by ultrasound. 1% lidocaine was used anesthetize the surrounding skin. A finder needle was then used to locate fluid and clear yellow fluid was obtained. A 10-blade scalpel used to make the incision. The catheter was then threaded without difficulty. The patient had 2000 mL of clear yellow fluid removed. Resident was present for the entire procedure. Estimated Blood Loss: 2cc The patient tolerated the procedure well and there were no complications. Was there an fitter's assistant present: Yes Modeling Agency Manager: Christiane Acosta Estimated blood loss (cc): 2 Specimen: Peritoneal fluid Pathology: none sent Condition: stable Disposition: floor
--- NOTE | 2017-11-29 16:20 | Internal Med Progress Note ---
Date of Encounter: 11/29/17 Time of Encounter: 14:30 - Assessment and plan (1) GI bleed Current Visit: Yes Status: Acute Assessment and plan: No further bleeding noted. H/H stable at this time. Will follow for now. Qualifiers: GI bleed type/associated pathology: anorectal hemorrhage Qualified Code(s) : K62.5 - Hemorrhage of anus and rectum (2) Anemia Current Visit: Yes Status: Chronic Assessment and plan: Hemoglobin is somewhat lower than baseline today. Monitoring. No transfusion at this time. Qualifiers: Anemia type: other cause Other causes of anemia: acute posthemorrhagic Qualified Code(s): D62 - Acute posthemorrhagic anemia (3) Diabetes mellitus Current Visit: Yes Status: Chronic Assessment and plan: Controlled. Continue accuchecks and coverage. Qualifiers: Diabetes mellitus type: type 2 Diabetes mellitus intermodal dispatcher insulin use: without jail use Diabetes mellitus complication status: with neurologic complications Diabetes mellitus complication detail: with unspecified neuropathy Qualified Code(s): E11.40 - Type 2 diabetes mellitus with diabetic neuropathy, unspecified (4) Hypertension Current Visit: Yes Status: Chronic Assessment and plan: Well-controlled. Continue current meds. Qualifiers: Hypertension type: essential hypertension Qualified Code(s): I10 - Essential (primary) hypertension (5) Esophageal varices Current Visit: Yes Status: Chronic Assessment and plan: Status post recent banding. On PPI. To have EGD and colonoscopy tomorrow. Qualifiers: Esophageal varices type: secondary Esophageal varices bleeding: with bleeding Qualified Code(s): I85.11 - Secondary esophageal varices with bleeding (6) Ascites Current Visit: Yes Status: Acute Assessment and plan: Had paracentesis today. Continue supportive care. Qualifiers: Ascites type: due to alcoholic cirrhosis Qualified Code(s): R18.8 - Other ascites (7) Cirrhosis Current Visit: Yes Status: Chronic Assessment and plan: Continue home medications including Lasix and spironolactone. Pt on Nadolol as well. Qualifiers: Hepatic cirrhosis type: alcoholic cirrhosis Ascites presence: with ascites Qualified Code(s): K70.31 - Alcoholic cirrhosis of liver with ascites - Time Spent With Patient Total time spent is greater than 50% in coordination of care (as documented) at patient's floor/unit and/or counseling patient: - Subjective Interval history: Mr Maldonado is currently in observation for presumed acute GI bleed. He has hx of esophageal varices. He is to have endoscopy tomorrow. He remains moderate to high risk due to potential for worsening bleeding and decompensation. - Constitutional Vitals: Temp Pulse Resp BP Pulse Ox 98.1 F 83 15 106/69 96 11/29/17 14:37 11/29/17 14:37 11/29/17 14:37 11/29/17 14:37 11/29/17 14:37 General appearance: Present: cooperative, A&O X 3, answers questions appropriately - Head Head exam: Present: normocephalic - Eye Eye exam: Present: EOMI, conjuntiva pink - ENT ENT exam: Present: mucous membranes moist - Respiratory Respiratory exam: Present: decreased breath sounds, CTAB. Absent: rales, rhonchi, wheezes - Cardiovascular Cardiovascular exam: Present: RRR. Absent: tachycardia - GI/Abdominal GI/Abdominal exam: Present: distended, soft. Absent: tenderness - Extremities Exam Extremities exam: Present: warm. Absent: tenderness - Neurological Exam Neurological exam: Present: alert, oriented X3, no focal deficits - Skin Skin exam: Present: dry, warm Internal Medicine: Result - Labs CBC & Chem 7: 11/29/17 00:49 11/29/17 00:49 - ABG Interpretation ABG results: PT/INR, D-dimer PT 13.9 Seconds (9.4-12.1) H 11/28/17 13:09 - Impressions Impressions Paracentesis Ultrasound 11/29/17 11:12 IMPRESSION: Successful ultrasound guided paracentesis. D/ / Perry Knox MD / Perry Knox MD Interpreting Provider: Perry Knox MD Consult Discharge Plan - Plan Referrals: [facility] [Outside] - 12/06/17 11:00 am
--- NOTE | 2017-11-29 16:43 | Electrocardiograph Report ---
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
[2017-11-29] MEDS ORDERED: SODIUM CHLORIDE/NAHCO3/KCL/PEG 4,000 ML SOLN.RECON PO ONE (17:00)
[2017-11-29 18:16] LABS: Hematocrit 32.8 % (37.5-50.1)
[2017-11-29 18:17] LABS: Hemoglobin 10.9 g/dL (12.9-16.9)
[2017-11-29] MEDS: traZODone 50 MG TABLET PO SCH (20:06)
[2017-11-30 06:06] LABS: Hematocrit 28.4 % (37.5-50.1); Hemoglobin 9.4 g/dL (12.9-16.9); Mean Corpuscular HGB Conc 33.1 g/dL (31.6-35.5); Mean Corpuscular Hemoglobin 33.2 pg (28.0-33.3); Mean Corpuscular Volume 100.4 fL (83.0-100.0); Mean Platelet Volume 10.3 fL (9.4-12.4); Platelet Count 127 K/mcL (140-400); Red Blood Count 2.83 M/mcL (4.19-5.50); Red Cell Distribution Width 15.9 % (11.5-14.5)
[2017-11-30] MEDS: Pantoprazole 40 MG VIAL IVP SCH (06:08)
[2017-11-30 06:13] LABS: BUN/Creatinine Ratio 22 (6-26); Blood Urea Nitrogen 18 mg/dL (8-23); Calcium 8.9 mg/dL (8.6-10.3); Carbon Dioxide 21 mEq/L (23-29); Chloride 111 mEq/L (98-107); Glucose 86 mg/dL (70-105); Magnesium 1.5 mg/dL (1.6-2.6); Osmolality,Calculated 289 (280-300); Potassium 3.8 mEq/L (3.5-5.1); Sodium 139 mEq/L (136-145); eGFR For African Americans > 60 (> 60); eGFR For Non-African Americans > 60 (> 60)
[2017-11-30] MEDS ORDERED: Propofol 500 MG/50 ML INFUS..BTL ONE (06:24)
--- NOTE | 2017-11-30 07:28 | Anesthesia Evaluation PreOp ---
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) ENGINEER INTERN History: Other (PTSD) Other Medical History: Hepatic (cirrhosis), Renal (kidney stones), Diabetes Type II, Other (prostate CA) Anesthesia History: No Prior Anesthetic Complications, Past Anesthesia Alcohol Use: heavy (quit 3 months ago, H/O heavy use) Drug use: none Medications and Allergies Allopurinol [Zyloprim 100 MG] 100 mg PO DAILY 11/05/17 [History] Cholecalciferol (Vitamin D3) [Vitamin D3] 1,000 mg PO DAILY 11/05/17 [History] Folic Acid 2 mg PO DAILY 11/05/17 [History] Hydrocortisone/Pramoxine [Proctofoam-Hc 1%-1% Foam] 1 appl RC BID PRN 11/05/17 [ History] Ketotifen Fumarate [Zaditor] 1 drop OP BID 11/05/17 [History] Lactobacillus Acidophilus [Acidophilus Lactobacillus] 1 cap PO DAILY 11/05/17 [ History] Lactulose 30 ml PO TID 11/05/17 [History] Metformin HCl 1,000 mg PO BID 11/05/17 [History] Omeprazole [PriLOSEC] 20 mg PO BID 11/05/17 [History] Propylene Glycol/Peg 400/Pf [Systane Ultra 0.4-0.3% Eye Drp] 1 drop OP DAILY 09/19 [History] Sertraline [Zoloft] 100 mg PO DAILY 11/05/17 [History] Thiamine HCl [Vitamin B-1] 100 mg PO DAILY 11/05/17 [History] Trazodone HCl 100 mg PO HS 11/05/17 [History] Furosemide [Lasix] 20 mg PO DAILY 11/28/17 [History] Spironolactone [Aldactone] 50 mg PO DAILY 11/28/17 [History] 3 Allergy/AdvReac Type Severity Reaction Status Date / Time No Known Allergies Allergy Verified 11/28/17 13:43 - Meds/Allergy Pre-op Review Medications Reviewed: Yes Allergies Reviewed: Yes Beta Blockers on Current Med List: No Anesthesia Results - Labs 11/30/17 05:41 11/30/17 05:41 Laboratory Tests 11/28/17 13:09 PT 13.9 H INR 1.3 - Imaging EKG: report reviewed (11/28/2017 SINUS RHYTHM WITH OCCASIONAL SUPRAVENTRICULAR PREMATURE COMPLEXES RIGHT BUNDLE BRANCH BLOCK [120+ ms QRS DURATION, UPRIGHT V1 , 40+ ms S IN I/aVL/V4/V5/V6]) Additional studies: 11/06/2017 Echo Impressions: LVEF 60%. Not all LV segments are well visualized. Mild left ventricular diastolic dysfunction. Normal right ventricular structure and function. No significant valvular dysfunction. No pulmonary hypertension. Pleural effusion is not seen on this study. Anesthesia Exam Vital Signs/O2 Sat/Glucose, Most Recent Temp Pulse Resp BP Pulse Ox 98.1 F 75 16 116/69 97 11/30/17 07:16 11/30/17 07:16 11/30/17 07:16 11/30/17 07:16 11/30/17 07:16 Blood Glucose* 77 Height: 5'10"/1.78m Weight: 182 lbs/82.8 kg NPO (# of Hours): 8 Pain Scale: 0 Pain Scale Used: Numeric (1 - 10) - HEENT Pupil (Motor): EOMI Mallampati: II Teeth: Normal Oral Opening: Greater than 3 - ENGINEER INTERN LOC: Oriented ENGINEER INTERN Motor: Normal RUE, Normal LUE, Normal RLE, Normal LLE, Normal Face ENGINEER INTERN Sensory: Normal: RUE, LUE, Face, Deficit: RLE, LLE - Cardiac Rhythm: Regular Murmur: None - Pulmonary Breath Sounds: bilateral Clear Respiratory Effort: Symmetrical Anesthesia Assess/Plan ASA Score: 3 Modified [place] Scale for Level of Consciousness: Cooperative, oriented, and tranquil Anesthetic Plan: MAC Monitoring Plan: Standard Monitors
--- NOTE | 2017-11-30 08:30 | Anesthesia Evaluation Post Op ---
Date of Encounter: 11/30/17 Time of Encounter: 08:30 - Vital Signs Vital Signs: 3 Vital Signs Time 828 BP 92/57 Pulse 74 Resp 16 O2 Sat 97 - Lungs Lungs: Clear Ascult./Percussion - Airway Airway: Non-obstructed - Cardiovascular Regular Rate - Mental Status Mental Status: Asleep with brisk response to light stimulation - Nausea Vomiting Nausea Vomiting: Not Present - Hydration Hydration: NPO, Has not voided - Discharge PostOp Status: Transfer Patient to floor
[2017-11-30 08:52] VITALS: BP 105/66
[2017-11-30] MEDS: Spironolactone 25 MG TABLET PO SCH (08:53)
[2017-11-30] MEDS: Lactulose Oral Soln 20 GM/30 ML UDC PO SCH (09:43)
[2017-11-30] MEDS: Folic Acid 1 MG TABLET PO SCH (09:43)
[2017-11-30] MEDS: Artificial Tears SOLN 15 ML BOTTLE OP SCH (09:43)
[2017-11-30] MEDS: Thiamine (B-1) 100 MG TABLET PO SCH (09:43)
[2017-11-30] MEDS: Furosemide 20 MG TABLET PO SCH (09:43)
[2017-11-30] MEDS: Lactobacillus 1 EACH CAP.SPRINK PO SCH (09:43)
[2017-11-30] MEDS: Cholecalciferol (D-3) 1,000 UNIT TABLET PO SCH (09:43)
--- NOTE | 2017-11-30 13:06 | Discharge Summary ---
- NOTES TO OUTPATIENT PROVIDER Notes to Outpatient Provider: Mr Maldonado was admitted due to rectal bleeding. He had significant ascites and he had paracentesis. Due to history of varices, he had EGD and colonoscopy which did not reveal active bleeding. He was started on Naldolol as well. Date of Encounter: 11/30/17 Time of Encounter: 13:01 - Discharge Diagnosis (1) GI bleed Priority: Primary Status: Resolved Assessment and Plan: Most likely due to hemorrhoids and rectal varices. Qualifiers: GI bleed type/associated pathology: anorectal hemorrhage Qualified Code(s) : K62.5 - Hemorrhage of anus and rectum (2) Anemia Priority: Secondary Status: Chronic Qualifiers: Anemia type: other cause Other causes of anemia: acute posthemorrhagic Qualified Code(s): D62 - Acute posthemorrhagic anemia (3) Diabetes mellitus Priority: Secondary Status: Chronic Qualifiers: Diabetes mellitus type: type 2 Diabetes mellitus termite exterminator helper insulin use: without termite exterminator helper use Diabetes mellitus complication status: with neurologic complications Diabetes mellitus complication detail: with unspecified neuropathy Qualified Code(s): E11.40 - Type 2 diabetes mellitus with diabetic neuropathy, unspecified (4) Hypertension Priority: Secondary Status: Chronic Qualifiers: Hypertension type: essential hypertension Qualified Code(s): I10 - Essential (primary) hypertension (5) Esophageal varices Priority: Secondary Status: Chronic Qualifiers: Esophageal varices type: secondary Esophageal varices bleeding: with bleeding Qualified Code(s): I85.11 - Secondary esophageal varices with bleeding (6) Ascites Priority: Secondary Status: Chronic Qualifiers: Ascites type: due to alcoholic cirrhosis Qualified Code(s): K70.31 - Alcoholic cirrhosis of liver with ascites (7) Cirrhosis Priority: Secondary Status: Chronic Qualifiers: Hepatic cirrhosis type: alcoholic cirrhosis Ascites presence: with ascites Qualified Code(s): K70.31 - Alcoholic cirrhosis of liver with ascites (8) Esophageal varices Priority: Secondary Status: Chronic Qualifiers: Esophageal varices type: secondary Esophageal varices bleeding: without bleeding Qualified Code(s): I85.10 - Secondary esophageal varices without bleeding (9) Rectal varices Priority: Secondary Status: Chronic Hospital course: Mr. Maldonado is a 72 year old male with hx of cirrhosis and varices presented to ED with lower GI bleed. He was subsequently admitted. Mr Maldonado was admitted to med surg. He was seen by GI and underwent EGD and colonoscopy today. He had esophageal varices and rectal varices but no active bleeding. His H/H has remained stable. He also had paracentesis which improved his symptoms. At this time he is afebrile and tolerating PO diet. He is ready for discharge home. Discharge discussed with: patient - Time Spent with Patient Total time spent providing and/or coordinating discharge services: 39 min - Discharge Medications Prescriptions: Nadolol [Corgard] 40 mg PO DAILY #30 tablet Home Medications: Allopurinol [Zyloprim 100 MG] 100 mg PO DAILY 11/05/17 [History] Cholecalciferol (Vitamin D3) [Vitamin D3] 1,000 mg PO DAILY 11/05/17 [History] Folic Acid 2 mg PO DAILY 11/05/17 [History] Hydrocortisone/Pramoxine [Proctofoam-Hc 1%-1% Foam] 1 appl RC BID PRN 11/05/17 [ History] Ketotifen Fumarate [Zaditor] 1 drop OP BID 11/05/17 [History] Lactobacillus Acidophilus [Acidophilus Lactobacillus] 1 cap PO DAILY 11/05/17 [ History] Lactulose 30 ml PO TID 11/05/17 [History] Metformin HCl 1,000 mg PO BID 11/05/17 [History] Omeprazole [PriLOSEC] 20 mg PO BID 11/05/17 [History] Propylene Glycol/Peg 400/Pf [Systane Ultra 0.4-0.3% Eye Drp] 1 drop OP DAILY 09/19 [History] Sertraline [Zoloft] 100 mg PO DAILY 11/05/17 [History] Thiamine HCl [Vitamin B-1] 100 mg PO DAILY 11/05/17 [History] Trazodone HCl 100 mg PO HS 11/05/17 [History] Furosemide [Lasix] 20 mg PO DAILY 11/28/17 [History] Spironolactone [Aldactone] 50 mg PO DAILY 11/28/17 [History] Nadolol [Corgard] 40 mg PO DAILY #30 tablet 11/30/17 [Rx] Allergies/Adverse Reactions: 3 Allergy/AdvReac Type Severity Reaction Status Date / Time No Known Allergies Allergy Verified 11/28/17 13:43 Date of admission: 11/29/17 09:58 [facility] Consults: GI Discharging clinician: Naldo Kendrick Anticipated date of discharge: 11/30/17 - Constitutional Vitals: Temp Pulse Resp BP Pulse Ox 97.5 F L 77 16 105/66 95 11/30/17 08:45 11/30/17 08:45 11/30/17 08:45 11/30/17 08:45 11/30/17 08:45 General appearance: Present: cooperative, A&O X 3, answers questions appropriately - Head Head exam: Present: normocephalic - Eye Eye exam: Present: conjuntiva pink - ENT ENT exam: Present: mucous membranes moist - Respiratory Respiratory exam: Present: CTAB. Absent: rhonchi, wheezes - Cardiovascular Cardiovascular exam: Present: RRR. Absent: tachycardia - GI/Abdominal GI/Abdominal exam: Present: distended, soft. Absent: tenderness - Extremities Exam Extremities exam: Present: warm. Absent: tenderness - Neurological Exam Neurological exam: Present: alert, oriented X3 - Skin Skin exam: Present: dry, warm - Patient Status Disposition: Home, Self-Care Condition: Fair Functional capacity at discharge: independent ambulation Overall status at discharge: patient is progressing back to baseline - Discharge Instructions Follow Up With: [facility] [Outside] - 12/06/17 11:00 am - Diet and Activity Activity: increase activity as tolerated Diet: advance to your usual diet - VTE Documentation of Mechanical Device: Intermittent pneumatic compression device
== END 2017-11-30 15:36 | disposition home or self-care (01) | DRG 394 ==
LOC: EMEROO 12:39 → 3ANU 12:39 → SUATTDRO 14:12 → 3ANU 15:24
PROVIDERS: ADMIT Internal Medicine; ATTEND Internal Medicine